=== PATIENT | female | born 1960 | race Caucasian/White ===

== ENCOUNTER 2016-08-14 16:33 | Inpatient (IN) | payer OTHER ==
[2016-08-14] VITALS (7 sets, daily range): BP systolic 97–121; BP diastolic 65–71
[~2016-08-14] VITALS: Ht 154.9 cm; Wt 195.0 kg
[~2016-08-14 16:33] MED LIST: AZIT-21 PO; PRCD5U PO
[2016-08-14] MEDS ORDERED: RT-ALBUINH IH (16:47)
[2016-08-14] MEDS ORDERED: SERT100T PO (16:47)
--- NOTE | 2016-08-14 17:22 | ED Respiratory ---
General Chief Complaint: Respiratory Problems Stated Complaint: SOB Nursing Triage Note: C/O SOA FOR QUITE SOME TIME. GENERALIZED PAIN. PT. ALSO C/O WEAKNESS FOR ABOUT 3 MONTHS Source: patient Exam Limitations: no limitations (JANAE LEWIS MD) History of Present Illness Time seen by provider: 17:21 Initial Comments The patient is a morbidly obese white female who presents complaining of shortness of breath. She states that she has been short of breath for as long as 2 years. This is been getting worse over the last 6 months. She also complains of generalized pain and progressive weakness over period of about 3 months. She believes that she is retaining fluid. She has no prior history of myocardial disease. She was a former smoker and quit about 10 years ago. She began smoking 12 which would put bau-bygx-hvdy at 40 or more. (JANAE LEWIS MD) Initial Comments Patient and her daughter reports that she has been diagnosed with hepatitis C recently was told she get worked up by Dr. Maciel and is been in the process of getting this started but it has not had an ultrasound of the liver or kidney workup on genotype that she is aware of. Her daughter says that yesterday she noticed that her whites of her eyes were extremely yellow and her skin was very yellow however to little better today. The patient's also noticed the last several days is progressively gotten worse that she's had swelling in her feet difficulty breathing and feeling extremely fatigued and having anergia. Patient reports she drinks alcohol approximately 1/5 of vodka daily. (RAMONA FELIPE) Allergies and Home Medications Allergies Coded Allergies: No Known Drug Allergies (Unverified , 08/14/16) Home Medications Albuterol Sulfate 6.7 Gm Hfa.aer.ad, 2 PUFF IH Q6H PRN for SHORTNESS OF BREATH, (Reported) Sertraline HCl 100 Mg Tablet, 100 MG PO DAILY, (Reported) Constitutional: No chills, No diaphoresis, No fever, malaise, weight gain Respiratory: No cough, No short of breath, No wheezing Cardiovascular: No chest pain, edema, No palpitations Gastrointestinal: No abdominal pain, No constipation, diarrhea, No nausea, No vomiting Genitourinary: No discharge, No dysuria Musculoskeletal: No back pain, No joint pain Skin: change in color (yellow with scleral icterus), No pruritus, No rash ( RAMONA FELIPE) Past Eleiivm-Mduiys-Qobyyp Hx Patient Social History Alcohol Use: Regular Use Recreational Drug Use: No Smoking Status: Former Smoker Recent Foreign Travel: No Contact w/Someone Who Travel: No Recent Infectious Disease Expo: No Recent Hopitalizations: No (JANAE LEWIS MD) Alcohol Use: Denies Use Recreational Drug Use: No Smoking Status: Former Smoker (RAMONA FELIPE) Seasonal Allergies Seasonal Allergies: No (JANAE LEWIS MD) Cardiovascular Cardiac Disorders: Hypertension (JANAE LEWIS MD) Musculoskeletal Musculoskeletal Disorders: Arthritis (JANAE LEWIS MD) Cancer Cancer: Cervical (JANAE LEWIS MD) Psychosocial Behavioral Health Disorders: Anxiety, Depression (JANAE LEWIS MD) Blood Transfusions Adverse Reaction to a Blood Tr: No (JANAE LEWIS MD) Physical Exam Vital Signs Vital Sign - Last 12Hours 08/14/16 16:35 Temp 99.0 Pulse 115 Resp 22 B/P (MAP) 139/71 Pulse Ox 97 O2 Delivery Room Air (RAMONA FELIPE) Vital Signs Capillary Refill : Less Than 3 Seconds (JANAE LEWIS MD) General Appearance: mild distress, obese Eyes: Bilateral Eye EOMI, Bilateral Eye PERRL, Bilateral Eye Scleral Icterus HEENT: normal ENT inspection, pharynx normal, scleral icterus (R), scleral icterus (L) Neck: non-tender, supple, normal inspection Respiratory: chest non-tender, lungs clear, normal breath sounds, no respiratory distress Cardiovascular: normal peripheral pulses, regular rate, rhythm, no JVD, other ( 2+ pitting edema to bilateral lower shortness) Gastrointestinal: normal bowel sounds, non tender, soft Neurologic/Psychiatric: 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, alert, oriented x 3, other ( essential tremor without asterixis) Skin: normal color, warm/dry Lymphatic: no adenopathy (RAMONA FELIPE) Progress/Results/Core Measures Results/Orders Lab Results Laboratory Tests Test 08/14/16 17:40 08/14/16 17:45 08/14/16 19:10 Range/Units White Blood Count 11.9 H 4.3-11.0 10^3/uL Red Blood Count 3.13 L 4.35-5.85 10^6/uL Hemoglobin 10.5 L 11.5-16.0 G/DL Hematocrit 32 L 35-52 % Mean Corpuscular Volume 102 H 80-99 FL Mean Corpuscular Hemoglobin 34 25-34 PG Mean Corpuscular Hemoglobin Concent 33 32-36 G/DL Red Cell Distribution Width 20.2 H 10.0-14.5 % Platelet Count 101 L 130-400 10^3/uL Mean Platelet Volume 9.9 7.4-10.4 FL Neutrophils (%) (Auto) 73 42-75 % Lymphocytes (%) (Auto) 14 12-44 % Monocytes (%) (Auto) 11 0-12 % Eosinophils (%) (Auto) 1 0-10 % Basophils (%) (Auto) 1 0-10 % Neutrophils # (Auto) 8.7 H 1.8-7.8 X 10^3 Lymphocytes # (Auto) 1.7 1.0-4.0 X 10^3 Monocytes # (Auto) 1.3 H 0.0-1.0 X 10^3 Eosinophils # (Auto) 0.1 0.0-0.3 10^3/uL Basophils # (Auto) 0.1 0.0-0.1 10^3/uL Sodium Level 128 L 135-145 MMOL/L Potassium Level 6.0 H 3.9 3.6-5.0 MMOL/L Chloride Level 91 L 98-107 MMOL/L Carbon Dioxide Level 22 21-32 MMOL/L Anion Gap 15 H 5-14 MMOL/L Blood Urea Nitrogen 6 L 7-18 MG/DL Creatinine 0.48 L 0.60-1.30 MG/DL Estimat Glomerular Filtration Rate > 60 BUN/Creatinine Ratio 13 Glucose Level 130 H 70-105 MG/DL Calcium Level 7.8 L 8.5-10.1 MG/DL Total Bilirubin 10.6 H 0.1-1.0 MG/DL Aspartate Amino Transf (AST/SGOT) 227 H 5-34 U/L Alanine Aminotransferase (ALT/SGPT) 82 H 0-55 U/L Alkaline Phosphatase 443 H 40-136 U/L Troponin I < 0.30 <0.30 NG/ML Total Protein 6.4 6.4-8.2 GM/DL Albumin 2.7 L 3.2-4.5 GM/DL Blood Gas Puncture Site LEFT RADIAL/VENOUS Blood Gas Patient Temperature 97.9 Arterial Blood pH 7.44 H 7.37-7.43 Arterial Blood Partial Pressure CO2 38 35-45 MMHG Arterial Blood Partial Pressure O2 21 *L 79-93 MMHG Arterial Blood HCO3 26 23-27 MMOL/L Arterial Blood Total CO2 27.1 21.0-31.0 MMOL/L Arterial Blood Oxygen Saturation 28 L 94-100 % Arterial Blood Base Excess 2.1 -2.5-2.5 MMOL/L Shaan Test POSITIVE Blood Gas Ventilator Setting NO Blood Gas Inspired Oxygen ROOM AIR Prothrombin Time 15.6 H 12.2-14.7 SEC INR Comment 1.3 0.8-1.4 Activated Partial Thromboplast Time 47 H 24-35 SEC Ammonia 57 H 11-32 UMOL/L (RAMONA FELIPE) My Orders Orders - RAMONA FELIPE Ammonia (08/14/16 18:43) Protime With Inr (08/14/16 18:43) Partial Thromboplastin Time (08/14/16 18:43) Potassium (08/14/16 18:51) Ondansetron Injection (Zofran Injectio (08/14/16 19:45) (RAMONA FELIPE) Medications Given in ED Current Medications Medications Dose Ordered Sig/Serenity Route Start Time Stop Time Status Last Admin Dose Admin Ondansetron HCl 4 mg ONCE ONCE IVP 08/14/16 19:45 08/14/16 19:46 DC 08/14/16 19:35 4 MG (RAMONA FELIPE) Vital Signs/I&O Vital Sign - Last 12Hours 08/14/16 16:35 Temp 99.0 Pulse 115 Resp 22 B/P (MAP) 139/71 Pulse Ox 97 O2 Delivery Room Air (RAMONA FELIPE) Blood Pressure Mean: 93 Progress Note #1: Time: 18:48 Progress Note Patient is very jaundiced and has history that presents as end-stage liver failure with hypoalbuminemia and fluid overload. Her electrolytes are very off we will address her potassium with diuretics and possibly laxative if the ammonia is high. I will obtain ammonia and PT/INR and PTT. She is hyponatremic she will need inpatient status to get some of these electrolyte stabilizing get some of this fluid off.. Progress Note #2: Time: 20:34 Progress Note Repeat potassium was normal indicating the initial spurious or hemolyzed specimen. Her ammonia is elevated and she has increased somnolence as of lately so we'll call this mild hepatic encephalopathy and discuss it with Dr. Maciel and place her in observation status secondary to her debility and inability to take her meds care for herself if she has loose stools and diuretics same time. This also gives a chance to cement some plans since she has had a hard time getting in with her primary care physician for the management of her alcoholic/ viral hepatitis and probable cirrhosis. (RAMONA FELIPE) Diagnostic Imaging Diagonstic Imaging: Xray Plain Films/CT/US/NM/MRI: chest Comments VIA [facility]. [place], [place] NAME: KAROLINE MORAES MED REC#: [id number] PT STATUS: REG ER : 1960 PHYSICIAN: JANAE LEWIS MD ADMIT DATE: 08/14/16/ER Draft Date of Exam:08/14/16 CHEST 1 VIEW, AP/PA ONLY Portable erect AP chest at 5:44 p.m. INDICATION: Shortness of breath. FINDINGS: There is shallow inspiration when compared to the prior exam of 02/11/09. Allowing for this technical factor, the heart size is stable when compared to the prior exam and not enlarged. There is no sign of failure, pneumonia or pleural effusion. The mediastinum is not widened. The osseous structures are intact. IMPRESSION: Allowing for the shallow degree of inspiration, there is no evidence for an acute cardiopulmonary abnormality. Dictated on workstation # [id number] Dict: 08/14/16 1758 Trans: 08/14/16 1802 [facility] [id number] Interpreted by: MAITE MERRITT MD Electronically signed by: Reviewed: Reviewed by Me (RAMONA FELIPE) Transfer of Care Transfer of Care Time: 18:16 Care transferred to: randi (RAMONA FELIPE) Departure Communication Time/Spoke to Admitting Phy: 20:25 Communication Raheem: Discussed the case and she feels that an observation status just because of her physical debility would be reasonable and we will get started with Lasix and lactulose tonight. (RAMONA FELIPE) Impression Impression: Primary Impression: Hyperbilirubinemia Additional Impressions: Hypoalbuminemia Fluid overload Qualified Codes: E87.79 - Other fluid overload Hepatitis C Qualified Codes: B18.2 - Chronic viral hepatitis C Debility Hyperammonemia Acute on chronic alcoholic liver disease Hepatic encephalopathy Disposition: ADMITTED INPATIENT (obs) Condition: Stable Decision to Admit Reason: Admit from ER (General) Decision to Admit/Date: Aug 14, 2016 Time/Decision to Admit Time: 20:30 (RAMONA FELIPE) Departure-Patient Inst. Referrals: ALVIN NOBLES DO (PCP/Family) Primary Care Physician Copy Copies To 1: ARABELLA PAULSON RODNEY K MD Aug 14, 2016 17:22 RAMONA FELIPE Aug 14, 2016 18:17
[2016-08-14 17:46] LABS: BASOPHILS # (AUTO) 0.1 10^3/uL (0.0-0.1); BASOPHILS % (AUTO) 1 % (0-10); EOSINOPHILS # (AUTO) 0.1 10^3/uL (0.0-0.3); EOSINOPHILS % (AUTO) 1 % (0-10); LYMPHOCYTES # (AUTO) 1.7 X 10^3 (1.0-4.0); LYMPHOCYTES % (AUTO) 14 % (12-44); MEAN CORPUSCULAR HEMOGLOBIN 34 PG (25-34); MEAN CORPUSCULAR HGB CONC 33 G/DL (32-36); MEAN CORPUSCULAR VOLUME 102 FL (80-99); MEAN PLATELET VOLUME 9.9 FL (7.4-10.4); MONOCYTES # (AUTO) 1.3 X 10^3 (0.0-1.0); MONOCYTES % (AUTO) 11 % (0-12); NEUTROPHILS # (AUTO) 8.7 X 10^3 (1.8-7.8); NEUTROPHILS % (AUTO) 73 % (42-75); PLATELET COUNT 101 10^3/uL (130-400); RED BLOOD COUNT 3.13 10^6/uL (4.35-5.85); RED CELL DISTRIBUTION WIDTH 20.2 % (10.0-14.5); WHITE BLOOD COUNT 11.9 10^3/uL (4.3-11.0)
[2016-08-14 17:57] LABS: ABG BASE EXCESS 2.1 MMOL/L (-2.5-2.5); ABG HCO3 26 MMOL/L (23-27); ABG OXYGEN SATURATION 28 % (94-100); ABG PCO2 38 MMHG (35-45); ABG PH 7.44 (7.37-7.43); ABG TCO2 27.1 MMOL/L (21.0-31.0)
[2016-08-14 17:58] LABS: ABG PO2 21 MMHG (79-93)
[2016-08-14 17:59] LABS: ALLENS TEST POSITIVE; PATIENT TEMP 97.9
--- NOTE | 2016-08-14 18:02 | Diagnostic Imaging Report ---
Portable erect AP chest at 5:44 p.m. INDICATION: Shortness of breath. FINDINGS: There is shallow inspiration when compared to the prior exam of 02/11/09. Allowing for this technical factor, the heart size is stable when compared to the prior exam and not enlarged. There is no sign of failure, pneumonia or pleural effusion. The mediastinum is not widened. The osseous structures are intact. IMPRESSION: Allowing for the shallow degree of inspiration, there is no evidence for an acute cardiopulmonary abnormality. Dictated by: Dictated on workstation # [id number]
[2016-08-14 18:06] LABS: ALANINE AMINOTRANSFERASE 82 U/L (0-55); ALBUMIN 2.7 GM/DL (3.2-4.5); ANION GAP 15 MMOL/L (5-14); ASPARTATE AMINO TRANSFERASE 227 U/L (5-34); BILIRUBIN,TOTAL 10.6 MG/DL (0.1-1.0); BLOOD UREA NITROGEN 6 MG/DL (7-18); BUN/CREATININE RATIO 13; CALCIUM 7.8 MG/DL (8.5-10.1); CARBON DIOXIDE 22 MMOL/L (21-32); CHLORIDE 91 MMOL/L (98-107); CREATININE SERUM 0.48 MG/DL (0.60-1.30); GFR ESTIMATED > 60; GLUCOSE 130 MG/DL (70-105); SODIUM 128 MMOL/L (135-145); TOTAL PROTEIN 6.4 GM/DL (6.4-8.2)
[2016-08-14 18:12] LABS: TROPONIN I < 0.30 NG/ML (<0.30)
[2016-08-14 19:27] LABS: POTASSIUM 3.9 MMOL/L (3.6-5.0)
[2016-08-14 19:36] LABS: INR 1.3 (0.8-1.4); PROTHROMBIN TIME PATIENT 15.6 SEC (12.2-14.7)
[2016-08-14] MEDS ORDERED: ONDANSETRON 4 MG/2 ML (SDV) Z0FRAN IVP ONE (19:45)
[2016-08-14] MEDS ORDERED: ONDANSETRON 4 MG/2 ML (SDV) Z0FRAN IV PRN (22:00)
[2016-08-14] MEDS ORDERED: LACTULOSE SYRUP 10GM/15ML (ENULOSE) 30ML UDC PO ONE (22:00)
[2016-08-14] MEDS ORDERED: SENNA W/DOCUSATE (SENOKOT S) TABLET PO PRN (22:00)
[2016-08-14] MEDS ORDERED: LORazepam 1 MG (ATIVAN) TAB PO PRN ×3 (22:00→22:15)
[2016-08-14] MEDS ORDERED: LORazepam INJ 2 MG/ML (ATIVAN) VIAL IV PRN ×4 (22:00)
[2016-08-14] MEDS ORDERED: ANTACID SUSP 30 ML UDC (MYLANTA) PO PRN (22:00)
[2016-08-15] VITALS (12 sets, daily range): BP systolic 100–128; BP diastolic 51–77
[2016-08-15 04:53] LABS: BASOPHILS # (AUTO) 0.1 10^3/uL (0.0-0.1); BASOPHILS % (AUTO) 1 % (0-10); EOSINOPHILS # (AUTO) 0.1 10^3/uL (0.0-0.3); EOSINOPHILS % (AUTO) 0 % (0-10); LYMPHOCYTES # (AUTO) 2.5 X 10^3 (1.0-4.0); LYMPHOCYTES % (AUTO) 22 % (12-44); MEAN CORPUSCULAR HEMOGLOBIN 33 PG (25-34); MEAN CORPUSCULAR HGB CONC 32 G/DL (32-36); MEAN CORPUSCULAR VOLUME 104 FL (80-99); MEAN PLATELET VOLUME 10.2 FL (7.4-10.4); MONOCYTES # (AUTO) 1.5 X 10^3 (0.0-1.0); MONOCYTES % (AUTO) 13 % (0-12); NEUTROPHILS # (AUTO) 7.5 X 10^3 (1.8-7.8); NEUTROPHILS % (AUTO) 65 % (42-75); PLATELET COUNT 175 10^3/uL (130-400); RED CELL DISTRIBUTION WIDTH 19.8 % (10.0-14.5); WHITE BLOOD COUNT 11.7 10^3/uL (4.3-11.0)
[2016-08-15 05:21] LABS: ALANINE AMINOTRANSFERASE 68 U/L (0-55); ALBUMIN 2.4 GM/DL (3.2-4.5); AMMONIA 74 UMOL/L (11-32); ANION GAP 14 MMOL/L (5-14); ASPARTATE AMINO TRANSFERASE 198 U/L (5-34); BLOOD UREA NITROGEN 7 MG/DL (7-18); BUN/CREATININE RATIO 12; CALCIUM 7.6 MG/DL (8.5-10.1); CARBON DIOXIDE 24 MMOL/L (21-32); CHLORIDE 92 MMOL/L (98-107); CREATININE SERUM 0.58 MG/DL (0.60-1.30); GFR ESTIMATED > 60; GLUCOSE 105 MG/DL (70-105); POTASSIUM 3.8 MMOL/L (3.6-5.0); SODIUM 130 MMOL/L (135-145); TOTAL PROTEIN 5.2 GM/DL (6.4-8.2)
[2016-08-15] MEDS: MULTIVIT W/MINERALS TAB (THERAGRAN M) PO SCH (06:42)
[2016-08-15] MEDS: THIAMINE 100 MG (VITAMIN B-1) TAB PO SCH (06:42)
[2016-08-15 08:09] LABS: BILIRUBIN,URINE 3+ (NEGATIVE); KETONES,URINE NEGATIVE (NEGATIVE); LEUKOCYTE ESTERASE ,URINE 2+ (NEGATIVE); NITRITE,URINE POSITIVE (NEGATIVE); PH,URINE 6.5 (5-9); PROTEIN,URINE 1+ (NEGATIVE); UROBILINOGEN,URINE 8 MG/DL (NORMAL)
[2016-08-15] MEDS: FOLIC ACID 1 MG TAB PO SCH (08:30)
[2016-08-15] MEDS: MAGNESIUM OXIDE (MAG-OX)400 MG TAB PO SCH ×2 (08:30→20:27)
[2016-08-15] MEDS: CEFDINIR 300 MG (OMNICEF) CAP PO SCH ×2 (10:06→20:27)
[2016-08-15 10:53] LABS: INR 1.4 (0.8-1.4); PROTHROMBIN TIME PATIENT 16.8 SEC (12.2-14.7)
[2016-08-15] MEDS: LACTULOSE SYRUP 10GM/15ML (ENULOSE) 30ML UDC PO SCH ×2 (12:12→20:27)
[2016-08-15] MEDS: FUROSEMIDE 40 MG (LASIX) TAB PO SCH ×2 (12:12→16:30)
[2016-08-15] MEDS: IBUPROFEN 600 MG (MOTRIN) TAB PO PRN ×2 (13:51→22:54)
--- NOTE | 2016-08-15 14:40 | History & Physicial (CHS) ---
HPI History of Present Illness: 56 yo female presented to ER after a few days of acute worsening of chronic weakness and fatigue. Over the last few days, she has been essentially so weak that she is unable to get to the bathroom without assistance. Per her daughter, she has been very drowsy and in and out of sleep all the time, more forgetful than usual. She has had very little intake but in spite of that, has had no urinary output in a day or longer. She was noted to have slightly elevated liver enzymes in May outpatient and had a hepatitis panel checked which showed positive antibody to Hepatitis C. An ultrasound was ordered, but she did not have it done and has not yet had Hep C pcr testing. She has continued to drink a significant amount of alcohol. She states she wants to quit, but was worried about having seizures at home where she lives alone. Date seen by provider: Aug 15, 2016 Time Seen by Provider: 11:00 Attending Physician Kayleen Maciel MD PCP Kayleen Maciel MD Consult Date of Admission Aug 14, 2016 at 8:47 pm Home Medications Home Medications Reviewed patient Home Medication Reconciliation Form Allergies Coded Allergies: No Known Drug Allergies (Unverified , 08/14/16) SNS-Xglkwp-Oxlalk Hx Patient Social History Alcohol Use: Regular Use Recreational Drug Use: No Smoking Status: Former Smoker Recent Foreign Travel: No Contact w/other who traveled: No Recent Hopitalizations: No Recent Infectious Disease Expo: No Physical Abuse Screen: No Sexual Abuse: No Past Medical History PMHx: Hepatitis C (unknown if active or historic) Excessive alcohol use Depression Panic attacks PSurgHx: C section Family Medical History Significant Family History: Cancer (lung), Diabetes Review of Systems (CHC) Constitutional: No fever, malaise, weakness EENTM: no symptoms reported Respiratory: short of breath Cardiovascular: edema Gastrointestinal: No abdominal pain, No constipation, diarrhea, nausea, vomiting Genitourinary: decreased output Musculoskeletal: joint pain (chronic, no recent changes), muscle pain (leg cramps) Skin: No rash Psychiatric/Neurological: Anxiety Reviewed Test Results Reviewed Test Results Lab Laboratory Tests Test 08/14/16 17:40 08/14/16 17:45 08/14/16 19:10 08/15/16 04:27 Range/Units White Blood Count 11.9 H 11.7 H 4.3-11.0 10^3/uL Red Blood Count 3.13 L 2.80 L 4.35-5.85 10^6/uL Hemoglobin 10.5 L 9.2 L 11.5-16.0 G/DL Hematocrit 32 L 29 L 35-52 % Mean Corpuscular Volume 102 H 104 H 80-99 FL Mean Corpuscular Hemoglobin 34 33 25-34 PG Mean Corpuscular Hemoglobin Concent 33 32 32-36 G/DL Red Cell Distribution Width 20.2 H 19.8 H 10.0-14.5 % Platelet Count 101 L 175 130-400 10^3/uL Mean Platelet Volume 9.9 10.2 7.4-10.4 FL Neutrophils (%) (Auto) 73 65 42-75 % Lymphocytes (%) (Auto) 14 22 12-44 % Monocytes (%) (Auto) 11 13 H 0-12 % Eosinophils (%) (Auto) 1 0 0-10 % Basophils (%) (Auto) 1 1 0-10 % Neutrophils # (Auto) 8.7 H 7.5 1.8-7.8 X 10^3 Lymphocytes # (Auto) 1.7 2.5 1.0-4.0 X 10^3 Monocytes # (Auto) 1.3 H 1.5 H 0.0-1.0 X 10^3 Eosinophils # (Auto) 0.1 0.1 0.0-0.3 10^3/uL Basophils # (Auto) 0.1 0.1 0.0-0.1 10^3/uL Sodium Level 128 L 130 L 135-145 MMOL/L Potassium Level 6.0 H 3.9 3.8 3.6-5.0 MMOL/L Chloride Level 91 L 92 L 98-107 MMOL/L Carbon Dioxide Level 22 24 21-32 MMOL/L Anion Gap 15 H 14 5-14 MMOL/L Blood Urea Nitrogen 6 L 7 7-18 MG/DL Creatinine 0.48 L 0.58 L 0.60-1.30 MG/DL Estimat Glomerular Filtration Rate > 60 > 60 BUN/Creatinine Ratio 13 12 Glucose Level 130 H 105 70-105 MG/DL Calcium Level 7.8 L 7.6 L 8.5-10.1 MG/DL Total Bilirubin 10.6 H 10.0 H 0.1-1.0 MG/DL Aspartate Amino Transf (AST/SGOT) 227 H 198 H 5-34 U/L Alanine Aminotransferase (ALT/SGPT) 82 H 68 H 0-55 U/L Alkaline Phosphatase 443 H 403 H 40-136 U/L Troponin I < 0.30 <0.30 NG/ML Total Protein 6.4 5.2 L 6.4-8.2 GM/DL Albumin 2.7 L 2.4 L 3.2-4.5 GM/DL Blood Gas Puncture Site LEFT RADIAL/VENOUS Blood Gas Patient Temperature 97.9 Arterial Blood pH 7.44 H 7.37-7.43 Arterial Blood Partial Pressure CO2 38 35-45 MMHG Arterial Blood Partial Pressure O2 21 *L 79-93 MMHG Arterial Blood HCO3 26 23-27 MMOL/L Arterial Blood Total CO2 27.1 21.0-31.0 MMOL/L Arterial Blood Oxygen Saturation 28 L 94-100 % Arterial Blood Base Excess 2.1 -2.5-2.5 MMOL/L Shaan Test POSITIVE Blood Gas Ventilator Setting NO Blood Gas Inspired Oxygen ROOM AIR Prothrombin Time 15.6 H 12.2-14.7 SEC INR Comment 1.3 0.8-1.4 Activated Partial Thromboplast Time 47 H 24-35 SEC Ammonia 57 H 74 H 11-32 UMOL/L Serum Alcohol < 10 <10 MG/DL Test 08/15/16 07:45 08/15/16 10:35 Range/Units Urine Color BROWN H Urine Clarity CLEAR Urine pH 6.5 5-9 Urine Specific [place] 1.010 L 1.016-1.022 Urine Protein 1+ H NEGATIVE Urine Glucose (UA) NEGATIVE NEGATIVE Urine Ketones NEGATIVE NEGATIVE Urine Nitrite POSITIVE H NEGATIVE Urine Bilirubin 3+ H NEGATIVE Urine Urobilinogen 8 H NORMAL MG/DL Urine Leukocyte Esterase 2+ H NEGATIVE Urine RBC (Auto) 3+ H NEGATIVE Urine RBC NONE /HPF Urine WBC 10-25 H /HPF Urine Squamous Epithelial Cells 5-10 /HPF Urine Crystals NONE /LPF Urine Bacteria FEW H /HPF Urine Casts NONE /LPF Urine Mucus NEGATIVE /LPF Urine Culture Indicated YES Prothrombin Time 16.8 H 12.2-14.7 SEC INR Comment 1.4 0.8-1.4 Radiology CXR 08/14: DRAFT IMPRESSION: Allowing for the shallow degree of inspiration, there is no evidence for an acute cardiopulmonary abnormality. Physical Exam-(CHC) Physical Exam Vital Signs VS - Last 72 Hours, by Label 08/14/16 08/14/16 08/14/16 08/14/16 16:35 21:16 21:30 21:30 Temp 99.0 97.7 98.5 Pulse 115 107 83 Resp 22 24 B/P (MAP) 139/71 101/71 Pulse Ox 97 95 98 O2 Delivery Room Air Room Air Room Air Room Air 08/14/16 08/14/16 08/14/16 08/14/16 21:51 22:07 22:52 23:21 Temp 98.4 98.4 98.0 Pulse 107 106 108 106 B/P (MAP) 101/71 118/66 121/71 105/71 Pulse Ox 99 O2 Delivery Room Air Room Air Room Air Room Air 08/14/16 08/14/16 08/14/16 08/15/16 23:39 23:50 23:57 00:06 Temp 99.0 Pulse 112 111 105 B/P (MAP) 97/65 107/71 100/70 Pulse Ox 95 O2 Delivery Room Air Room Air 08/15/16 08/15/16 08/15/16 08/15/16 00:22 00:37 00:51 01:00 Pulse 104 105 108 103 B/P (MAP) 100/55 105/56 113/74 08/15/16 08/15/16 08/15/16 08/15/16 01:06 01:43 02:09 04:00 Temp 97.9 98.4 98.5 98.2 Pulse 109 102 97 96 Resp B/P (MAP) 109/71 121/77 116/74 119/72 Pulse Ox 94 91 95 94 O2 Delivery Room Air Nasal Cannula Nasal Cannula Nasal Cannula O2 Flow Rate 2.00 2.00 2.00 08/15/16 08/15/16 08/15/16 08/15/16 06:57 07:45 08:00 08:00 Temp 98.8 Pulse 97 100 Resp 24 B/P (MAP) 114/59 Pulse Ox 98 98 O2 Delivery Nasal Cannula Nasal Cannula Room Air O2 Flow Rate 1.50 2.00 08/15/16 08/15/16 12:00 14:15 Temp 98.5 Pulse 103 Resp 24 B/P (MAP) 128/58 Pulse Ox 96 96 O2 Delivery Nasal Cannula O2 Flow Rate 2.00 Capillary Refill : Less Than 3 SecondsLess Than 3 Seconds General Appearance: mild distress, obese Eyes: Bilateral Eye Scleral Icterus Respiratory: lungs clear, accessory muscle use Cardiovascular: regular rate, rhythm, no murmur Gastrointestinal: normal bowel sounds, soft, No distended, other (mild ttp diffusely without rebound or guarding) Extremities: pedal edema (2+ to knees) Neurologic/Psychiatric: alert, normal mood/affect Skin: diaphoresis, jaundice Assessment/Plan Assessment/Plan Admission Dx Suspect hepatic encephalopathy Suspect chronic hepatitis C Transaminitis/hyperbilirubinemia UTI Hyponatremia Leukocytosis Macrocytic anemia Thrombocytopenia Excessive alcohol use Plan Suspect hepatic encephalopathy- excessive sleepiness and weakness with elevated ammonia on admission and history of elevated LFTs and Hep C antibody positive -Will obtain ultrasound liver and portal/splenic doppler to eval for possible portal/splenic vein thrombosis leading to acute on chronic liver dysfunction/ encephalopathy as well as to evaluate for ascites or liver mass- if ascites present, will consult Surgery for paracentesis to check for SBP -Check AFP and liver US as noted above to eval for hepatocellular carcinoma -Lactulose 30 mg TID -PT consult due to debility, unable to get up stairs to her home Suspect chronic hepatitis C- positive antibody May 2016, will check PCR to see if active Transaminitis/hyperbilirubinemia- significantly worsened in last few months, check Hep C and imaging as above, may be due to alcoholic liver disease UTI- may be partial cause of acute worsening condition, treat with cefdinir, await culture Hyponatremia- likely due to fluid overload from liver disease with low albumin, but may also have component of true hypovolemia given report of poor intake recently -Furosemide 40 mg PO BID, monitor GFR and intake closely Leukocytosis- unclear if related to UTI versus acute on chronic liver failure Macrocytic anemia- likely result of chronic alcohol use and liver disease, check B12 and folate Thrombocytopenia- likely due to liver disease, normalized day after admission, monitor Excessive alcohol use- alcohol withdrawal protocol ordered if needed, has not required any lorazepam as of yet -Social service consult to assist with outpatient treatment options, she states she will be able to quite if she knows she is past the withdrawal stage safely Diagnosis/Problems: Clinical Quality Measures DVT/VTE Risk/Contraindication: Risk Factor Score Per Nursin RFS Level Per Nursing on Admit: 4+=Very High Copy Copies To 1: KAYLEEN MACIEL MD, BETHANY N MD Aug 15, 2016 2:40 pm
[2016-08-15] MEDS ORDERED: RT-ALBUTEROL SULF 2.5 MG/3 ML PRE-MIX VIAL IH PRN (15:15)
--- NOTE | 2016-08-15 18:28 | Diagnostic Imaging Report ---
INDICATION: Hepatic encephalopathy. Evaluate for portal or splenic vein thrombosis. COMPARISON: None FINDINGS: Hepatic parenchyma is diffusely hyperechoic. This does result in posterior acoustic shadowing. No focal hepatic masses are seen. Liver is also enlarged measuring 22 cm in length. External margins of the liver are smooth without appreciable macro nodularity. The vascular structures and intrahepatic biliary ducts of the liver are heavily obscured, but visualized portions of the portal vein do show hepatopetal flow. Common bile duct is also heavily obscured and not visualized. Visualized portion of the gallbladder show no evidence of cholelithiasis, gallbladder wall thickening, nor pericholecystic free fluid. Abdominal aorta, IVC, and pancreas are obscured as well. Spleen measures 11.7 x 6.9 x 6 cm in size. No focal splenic mass type lesions are identified. Splenic vein is very difficult to visualize. Right kidney measures 10.7 cm in length and the left measures 11.9 cm. Kidneys are also heavily obscured, but show no evidence of solid mass, calculus, nor hydronephrosis. There is no ascites. IMPRESSION: 1. Overall, abdominal sonogram is heavily obscured secondary to patient body habitus and poor acoustic windows. 2. Hepatomegaly with hepatic steatosis. Hepatic steatosis also heavily obscured as underlying hepatic parenchymal. 3. Portal vein is obscured, but does appear to show hepatopetal flow. 4. Splenic vein suboptimally visualized. Dictated by: Dictated on workstation # [id number]
[2016-08-15] MEDS: ZOLPIDEM 5 MG (AMBIEN) TAB PO PRN (22:54)
[2016-08-15] MEDS: ENOXAPARIN 40 MG/0.4 ML (LOVENOX) SYR SC SCH (22:58)
[2016-08-16] VITALS (7 sets, daily range): BP systolic 108–127; BP diastolic 50–78
[2016-08-16 04:48] LABS: RED BLOOD COUNT 2.78 10^6/uL (4.35-5.85); WHITE BLOOD COUNT 11.8 10^3/uL (4.3-11.0)
[2016-08-16 05:15] LABS: INR 1.5 (0.8-1.4)
[2016-08-16 05:32] LABS: ALANINE AMINOTRANSFERASE 71 U/L (0-55); ALBUMIN 2.4 GM/DL (3.2-4.5); ANION GAP 12 MMOL/L (5-14); ASPARTATE AMINO TRANSFERASE 231 U/L (5-34); BILIRUBIN,TOTAL 11.8 MG/DL (0.1-1.0); BLOOD UREA NITROGEN 11 MG/DL (7-18); BUN/CREATININE RATIO 14; CALCIUM 7.6 MG/DL (8.5-10.1); CARBON DIOXIDE 26 MMOL/L (21-32); CHLORIDE 93 MMOL/L (98-107); CREATININE SERUM 0.81 MG/DL (0.60-1.30); GFR ESTIMATED > 60; GLUCOSE 105 MG/DL (70-105); MAGNESIUM 1.2 MG/DL (1.8-2.4); POTASSIUM 3.4 MMOL/L (3.6-5.0); SODIUM 131 MMOL/L (135-145); TOTAL PROTEIN 5.5 GM/DL (6.4-8.2)
[2016-08-16] MEDS: MULTIVIT W/MINERALS TAB (THERAGRAN M) PO SCH (06:13)
[2016-08-16] MEDS: FUROSEMIDE 40 MG (LASIX) TAB PO SCH ×2 (06:13→16:49)
[2016-08-16] MEDS: THIAMINE 100 MG (VITAMIN B-1) TAB PO SCH (06:13)
[2016-08-16] MEDS: MAGNESIUM OXIDE (MAG-OX)400 MG TAB PO SCH ×2 (08:49→21:41)
[2016-08-16] MEDS: FOLIC ACID 1 MG TAB PO SCH (08:49)
[2016-08-16] MEDS: LACTULOSE SYRUP 10GM/15ML (ENULOSE) 30ML UDC PO SCH ×3 (08:49→20:23)
[2016-08-16] MEDS: CEFDINIR 300 MG (OMNICEF) CAP PO SCH ×2 (08:49→21:41)
[2016-08-16] MEDS: IBUPROFEN 600 MG (MOTRIN) TAB PO PRN ×2 (08:53→16:49)
[2016-08-16] MEDS ORDERED: KCL 20 MEQ TAB (K-DUR) PO NR (09:15)
[2016-08-16] MEDS ORDERED: MAGNESIUM 1 GM/100 ML IVPB 100 ML IV ONE ×2 (09:15→18:45)
[2016-08-16] MEDS ORDERED: FUROSEMIDE 40 MG/4 ML INJ (LASIX) IVP NR (09:15)
--- NOTE | 2016-08-16 11:23 | Progress Note (SOAP) ---
NURASTEWART Rose STUDENT 08/16/16 1123: Subjective Subjective/Events-last exam 56 y/o F with somnolence and weakness. Patient reported weakness was less than the previous days. Over the past 24-48 hours patient has had difficulty urinating and dysuria. Patient has had an increased appetite, especially craving salt. She has had difficulty ambulating due to pain and the extra fluid on her legs. She complains of feeling swollen and some SOB. Patient reported no abdominal pain, nausea, headache, or chest pain. She reported sleeping better last night following administration of Zolpidem. Loose stools throughout the morning due to Lactulose. Discussed severity of her condition and that quitting alcohol use would possibly help her condition. No alcohol withdrawl symptoms have been noted by the patient. Review of Systems Date Seen by Provider: Aug 16, 2016 Time Seen by Provider: 09:00 General: Fatigue, Malaise, Appetite (Craving salt) Pulmonary: Dyspnea (Fluid overloaded) Gastrointestinal: Diarrhea (On lactulose) Genitourinary: Dysuria Objective Exam Last Set of Vital Signs Vital Signs Date Time Temp Pulse Resp B/P (MAP) Pulse Ox O2 Delivery O2 Flow Rate FiO2 08/16/16 08:59 96.6 96 20 113/56 99 Room Air 08/16/16 06:56 2.00 Capillary Refill : Less Than 3 SecondsLess Than 3 Seconds I&O Intake and Output 08/16/16 00:00 Intake Total 2925 ml Output Total 252 ml Balance 2673 ml Intake Oral 2925 ml Output Urine Total 252 ml # Voids 4 # Bowel Movements 10 General: Alert, Oriented X3, Cooperative Lungs: Clear to Auscultation Heart: Regular Rate, Normal S1, Normal S2 Abdomen: Normal Bowel Sounds, No Tenderness, Other (Hepatomegally) Extremities: Other (Edema and tenderness) Skin: No Significant Lesion Neuro: Other (No asterixis) Psych/Mental Status: Mental Status NL, Mood NL Results/Procedures Lab Laboratory Tests 08/16/16 04:29: White Blood Count 11.8H, Red Blood Count 2.78L, Hemoglobin 9.2L, Hematocrit 29L , Mean Corpuscular Volume 104H, Mean Corpuscular Hemoglobin 33, Mean Corpuscular Hemoglobin Concent 32, Red Cell Distribution Width 20.0H, Platelet Count 188, Mean Platelet Volume 10.0, Prothrombin Time 18.0H, INR Comment 1.5H, Sodium Level 131L, Potassium Level 3.4L, Chloride Level 93L, Carbon Dioxide Level 26, Anion Gap 12, Blood Urea Nitrogen 11, Creatinine 0.81, Estimat Glomerular Filtration Rate > 60, BUN/Creatinine Ratio 14, Glucose Level 105, Calcium Level 7.6L, Magnesium Level 1.2L, Total Bilirubin 11.8H, Aspartate Amino Transf (AST/SGOT) 231H, Alanine Aminotransferase (ALT/SGPT) 71H, Alkaline Phosphatase 421H, Total Protein 5.5L, Albumin 2.4L Microbiology 08/15/16 Urine Culture - Preliminary, Resulted Escherichia Coli Strep Or Related Genus Radiology CXR 08/14: DRAFT IMPRESSION: Allowing for the shallow degree of inspiration, there is no evidence for an acute cardiopulmonary abnormality. 08/16: Abdominal US: Overall obscured imaging. Hepatomegally noted. No ascites identified. IMPRESSION: 1. Overall, abdominal sonogram is heavily obscured secondary to patient body habitus and poor acoustic windows. 2. Hepatomegaly with hepatic steatosis. Hepatic steatosis also heavily obscured as underlying hepatic parenchymal. 3. Portal vein is obscured, but does appear to show hepatopetal flow. 4. Splenic vein suboptimally visualized. Assessment/Plan Assessment/Plan Admission Dx 08/15-08/16 1. Suspect hepatic encephalopathy 2. Suspect chronic hepatitis C 3. Transaminitis/hyperbilirubinemia 4. UTI 5. Hyponatremia 6. Leukocytosis 7. Macrocytic anemia 8. Thrombocytopenia 9. Excessive alcohol use Plan 08/15-08/16 1. Suspect hepatic encephalopathy- excessive sleepiness and weakness with elevated ammonia on admission and history of elevated LFTs and Hep C antibody positive -Will obtain ultrasound liver and portal/splenic doppler to eval for possible portal/splenic vein thrombosis leading to acute on chronic liver dysfunction/ encephalopathy as well as to evaluate for ascites or liver mass- if ascites present, will consult Surgery for paracentesis to check for SBP -Check AFP and liver US as noted above to eval for hepatocellular carcinoma -Lactulose 30 mg TID -PT consult due to debility, unable to get up stairs to her home 08/16 AFP elevated at 421 continued rise in LFTs -US of liver identified hepatomegally, no ascites, all else was obscured due to tissue. -Continue lactulose at a lower dose. -Maddrey DF score of 39 (>32) suggests Prednisalone 40 mg but holding until determine if active Hepatitis infection before administering. Will not administer if active infection due to immunosuppressive properties. If patient' s condition worsens, may consult [facility] or transfer at the beginning of the week. 2. Suspect chronic hepatitis C- positive antibody May 2016, will check PCR to see if active 08/16 awaiting PCR results 3. Transaminitis/hyperbilirubinemia- significantly worsened in last few months, check Hep C and imaging as above, may be due to alcoholic liver disease 08/16 Bilirubin continues to increase to 11.8 in the past 24 hours - awaiting results on Hep C - Consult/transfer noted above 4. UTI- may be partial cause of acute worsening condition, treat with cefdinir, await culture 08/16 Preliminary urine culture identified E. coli and Strep sp. - Continue cedinir until drug sensitivities are identified 5. Hyponatremia- likely due to fluid overload from liver disease with low albumin, but may also have component of true hypovolemia given report of poor intake recently -Furosemide 40 mg PO BID, monitor GFR and intake closely 08/16 Furosemide 40 mg PO BID continued, IV furosemide given to release some fluid , as patient states that she has urinated very little. - Monitor GFR and intake 6. Leukocytosis- unclear if related to UTI versus acute on chronic liver failure 08/16 Treating urinary tract infection but may be due to acute on chromic liver failure 7. Macrocytic anemia- likely result of chronic alcohol use and liver disease, check B12 and folate 08/16 B12 and folate pending 8. Thrombocytopenia- likely due to liver disease, normalized day after admission , monitor 08/16 Resolved 9. Excessive alcohol use- alcohol withdrawal protocol ordered if needed, has not required any lorazepam as of yet -Social service consult to assist with outpatient treatment options, she states she will be able to quite if she knows she is past the withdrawal stage safely 08/16 No withdrawl symptoms - Patient confident she will be able to quit - Lorazepam ready if patient does have symptoms Diagnosis/Problems: Clinical Quality Measures DVT/VTE Risk/Contraindication: Risk Factor Score Per Nursin RFS Level Per Nursing on Admit: 4+=Very High KAYLEEN RAI MD 08/16/16 1406: Objective Exam General: No Acute Distress Extremities: Other (2+ pitting edema to mid-calf) Skin: Other (jaundiced) Neuro: Normal Speech, Other (No asterixis) Assessment/Plan Assessment/Plan Plan Stable but continues with critically abnormal liver tests including mild elevation in AST/ALT with disproportionate increase in bilirubin/alk phos suggestive of acute alcoholic hepatitis. Given worsening PT/INR, today her discrimination factor for alcoholic liver disease eval is above 32, discussed with Hepatology section forest fire warden at (Dr. Bundy) and studies on prednisolone for alcoholic hepatitis are not in presence of Hep C, and steroids could worsen Hep C, so recommend awaiting hep C PCR and continuing supportive care. Her mentation and mobility are improved today. They are willing to take patient in transfer should condition worsen, and if stable, Dr. Bundy would be willing to see her in clinic soon after discharge. MELD score is 20 suggesting significant risk of short term (3 month) mortality but would need to be abstinent from alcohol for 6 months typically prior to transplant consideration. Discussed this with patient and she states she is ready to make whatever changes are necessary, but is concerned due to her lack of insurance, will have high school social studies tutor see her tomorrow to try to connect her with resources to start process of looking into disability, etc. Diagnosis/Problems: Supervisory-Addendum Brief Supervisory Addendum Patient interviewed and examined by me in addition to MS3 Stewart Lyman, agree with documentation with my additions/changes. STEWART LYMAN STUDENT Aug 16, 2016 11:23 KAYLEEN RAI MD Aug 16, 2016 14:06
[2016-08-16] MEDS ORDERED: MENTHOL/ZINC OXIDE (CALMOSEPTINE) 113 GM TUBE TOP PRN (14:30)
[2016-08-16] MEDS ORDERED: GABAPENTIN 300 MG (NEURONTIN) CAP PO ONE (17:00)
[2016-08-16 18:15] LABS: CALCIUM 7.4 MG/DL (8.5-10.1); CREATININE SERUM 1.06 MG/DL (0.60-1.30); MAGNESIUM 1.3 MG/DL (1.8-2.4); POTASSIUM 3.7 MMOL/L (3.6-5.0)
[2016-08-16] MEDS ORDERED: KCL 20 MEQ TAB (K-DUR) PO ONE (18:45)
[2016-08-16] MEDS: ENOXAPARIN 40 MG/0.4 ML (LOVENOX) SYR SC SCH (21:41)
[2016-08-16] MEDS: ZOLPIDEM 5 MG (AMBIEN) TAB PO PRN (21:41)
[2016-08-17] VITALS (14 sets, daily range): BP systolic 82–145; BP diastolic 39–68
[2016-08-17 05:58] LABS: INR 1.5 (0.8-1.4); PROTHROMBIN TIME PATIENT 18.2 SEC (12.2-14.7); RED BLOOD COUNT 2.72 10^6/uL (4.35-5.85); RED CELL DISTRIBUTION WIDTH 20.8 % (10.0-14.5); WHITE BLOOD COUNT 14.2 10^3/uL (4.3-11.0)
[2016-08-17 06:18] LABS: ALBUMIN 2.2 GM/DL (3.2-4.5); BILIRUBIN,TOTAL 12.5 MG/DL (0.1-1.0); CALCIUM 7.3 MG/DL (8.5-10.1); CREATININE SERUM 1.36 MG/DL (0.60-1.30); MAGNESIUM 1.3 MG/DL (1.8-2.4); POTASSIUM 3.9 MMOL/L (3.6-5.0); TOTAL PROTEIN 5.1 GM/DL (6.4-8.2)
[2016-08-17 07:33] LABS: FOLIC ACID 2.9 ng/mL (1.5-24.0)
[2016-08-17] MEDS: IBUPROFEN 600 MG (MOTRIN) TAB PO PRN (08:05)
[2016-08-17] MEDS: FUROSEMIDE 40 MG (LASIX) TAB PO SCH (08:05)
[2016-08-17] MEDS: MULTIVIT W/MINERALS TAB (THERAGRAN M) PO SCH (08:05)
[2016-08-17] MEDS: THIAMINE 100 MG (VITAMIN B-1) TAB PO SCH (08:05)
--- NOTE | 2016-08-17 09:41 | Physical Therapy Evaluation ---
PT Evaluation-General Medical Diagnosis Admission Date Aug 14, 2016 at 20:47 Medical Diagnosis: hepatic encephalopathy Onset Date: Aug 14, 2016 Therapy Diagnosis Therapy Diagnosis: generalized weakness and debility Height/Weight Height (Feet): 5 Height (Inches): 1.00 Weight (Pounds): 410 Weight (Ounces): 9.0 Precautions Precautions/Isolations: Fall Prevention, Standard Precautions Referral Physician: Raheem Reason for Referral: Evaluation/Treatment Medical History Pertinent Medical History: Alcoholism, Arthritis, HTN Additional Medical History Hep C Current History increase SOA and weakness for 3-6 months UTI Reviewed History: Yes Social History Home: Apartment Current Living Status: Alone Entry Into Home: Stairs With Railing PT Steps Into Home: 20 Prior/Core FIM Prior Level of Function Functional [place] Measure 0=Not Assessed/NA 4=Minimal Assistance 1=Total Assistance 5=Supervision or Setup 2=Maximal Assistance 6=Modified [place] 3=Moderate Assistance 7=Complete [place] Bed Mobility: 7 Transfers (B,C,W/C) (FIM): 7 Gait: 7 PT Evaluation-Current Subjective Patient states she is feeling better, however, continues to be weak. Pain Numeric Pain Scale: 0-No Pain Location: No Pain Reported Objective Patient Orientation: Normal For Age Problem Solving: Good Attachments: Oxygen ROM/Strength ROM Lower Extremities decrease ROM due to severe edema bilaterally Strenght Lower Extremities bilateral LE WFL grossly Integumentary/Posture Integumentary refer to nursing notes Bowel Incontinence: No Bladder Incontinence: No Posture WNL Neuromuscular (Tone, Coordination, Reflexes) grossly intact Sensory Vision: Wears Glasses Hearing: Functional Sensation Right Lower Extremit: Intact Sensation Left Lower Extremity: Intact Transfers Functional [place] Measure 0=Not Assessed/NA 4=Minimal Assistance 1=Total Assistance 5=Supervision or Setup 2=Maximal Assistance 6=Modified [place] 3=Moderate Assistance 7=Complete [place] Transfers (B, C, W/C) (FIM): 3 Scootin Rollin Supine to/from Sit: 3 Sit to/from Stand: 5 SBA with sit to stand mod assist for assistance of bilateral LE due to edema (patient prefers family to assist) Gait Mode of Locomotion: Walk Anticipated Mode of Locomotion: Walk Gait (FIM): 1 Distance (FIM): 1=up to 49 ft Distance: 15' Gait Level of Assist: 5 Gait Persons Needed: 1 Gait Assistive Device: FWW Comments/Gait Description trunk flexed posture with use of FWW Balance Sitting Static: Normal Sitting Dynamic: Normal Standing Static: Normal Standing Dynamic: Normal Assessment/Needs 56 y.o. female, will benefit from short term skilled PT to address functional mobility to safely return to home with family. Patient is limited due to fatigue/weakness from diagnosis. RN notified of PT instructing patient and family to be up ad annemarie in room to and from restroom PRN. Rehab Potential: Guarded Post Rehab Potential-Barriers: hepatic encephalopathy PT Prison Goals Prison Goals PT Mechanical Systems Design Engineer Goals Time Frame: Aug 28, 2016 Transfers (B,C,W/C) (FIM): 5 Gait (FIM): 2 Gait distance (FIM): 1=450-04 ft Distance: 150' Gait Level of Assist: 5 Gait Assistive Device: FWW Stairs (FIM): 2 # of Steps: 4 Stairs Level Of Assist: 5 PT Plan Problem List Problem List: Activity Tolerance, Gait, Bed Mobility Treatment/Plan Treatment Plan: Continue Plan of Care Treatment Plan: Bed Mobility, Education, Functional Activity Braden, Functional Strength, Gait, Safety, Therapeutic Exercise, Transfers Treatment Duration: Aug 28, 2016 Frequency: 6 times per week Estimated Hrs Per Day: .5 hour per day (or PRN) Patient and/or Family Agrees t: Yes Safety Risks/Education Patient Education: Disease Process, Safety Issues Teaching Recipient: Patient, Family Teaching Methods: Discussion Response to Teaching: Verbalize Understanding Discharge Recommendations Therapy D/C Recommendations: Home w/ Family Support Time/GCodes Time In: 840 Time Out: 905 Total Billed Treatment Time: 25 Total Billed Treatment 1 visit EVMod 25 min G Codes Necessary: SIS Milner PT Aug 17, 2016 09:41
[2016-08-17] MEDS: CEFDINIR 300 MG (OMNICEF) CAP PO SCH ×2 (09:49→20:10)
[2016-08-17] MEDS: MAGNESIUM OXIDE (MAG-OX)400 MG TAB PO SCH ×2 (09:49→20:10)
[2016-08-17] MEDS: FOLIC ACID 1 MG TAB PO SCH (09:49)
[2016-08-17] MEDS: LACTULOSE SYRUP 10GM/15ML (ENULOSE) 30ML UDC PO SCH ×3 (09:49→22:22)
[2016-08-17] MEDS ORDERED: LORazepam 0.5 MG (ATIVAN) TABLET ONE (12:02)
[2016-08-17] MEDS: LORazepam 0.5 MG (ATIVAN) TABLET PO PRN ×2 (12:11→20:11)
[2016-08-17] MEDS: ALBUMIN 25% 25 GM/100 ML IV (PRE-MIX) IV SCH ×6 (13:48→17:34)
[2016-08-17] MEDS ORDERED: NS IV 1000 ML 1,000 ML ONE (14:07)
--- NOTE | 2016-08-17 14:35 | Progress Note (SOAP) ---
Subjective Subjective/Events-last exam Patient very anxious, depressed today. States she was drinking 1/5 of vodka after her HCV ab came back positive. She has been extremely weak in the past month. Still very shaky. has a lot of edema still. urinating with stools - thinks this is not getting counted in her I/O totals. Review of Systems Date Seen by Provider: Aug 17, 2016 Time Seen by Provider: 09:00 Pulmonary: Dyspnea Cardiovascular: No: Chest Pain Objective Exam Last Set of Vital Signs Vital Signs Date Time Temp Pulse Resp B/P (MAP) Pulse Ox O2 Delivery O2 Flow Rate FiO2 08/17/16 08:00 98 Room Air 08/17/16 07:39 97.6 100 16 104/56 2.00 Capillary Refill : Less Than 3 SecondsLess Than 3 Seconds I&O Intake and Output 08/17/16 00:00 Intake Total 2912 ml Balance 2912 ml Intake Oral 2812 ml IV Total 100 ml # Voids 8 # Bowel Movements 12 General: Alert, Oriented X3, Cooperative, Mild Distress Lungs: Clear to Auscultation, Normal Air Movement Heart: Regular Rate, Normal S1, Normal S2, No Murmurs, Gallops, Rubs Abdomen: Normal Bowel Sounds, Soft, No Tenderness, Other (morbid obesity) Extremities: Other (3-4+ edema to thighs bilaterally, sacral pitting edema as well) Skin: Other (spider angiomatas on chest) Neuro: Normal Speech, Normal Tone, Sensation Intact Psych/Mental Status: Mental Status NL, Mood NL Results/Procedures Lab Laboratory Tests 08/16/16 17:15: Sodium Level 131L, Potassium Level 3.7, Chloride Level 95L, Carbon Dioxide Level 25, Anion Gap 11, Blood Urea Nitrogen 13, Creatinine 1.06, Estimat Glomerular Filtration Rate 54, BUN/Creatinine Ratio 12, Glucose Level 128H, Calcium Level 7.4L, Magnesium Level 1.3L 08/17/16 05:35: Sodium Level 129L, Potassium Level 3.9, Chloride Level 94L, Carbon Dioxide Level 26, Anion Gap 9, Blood Urea Nitrogen 15, Creatinine 1.36H, Estimat Glomerular Filtration Rate 41, BUN/Creatinine Ratio 11, Glucose Level 140H, Calcium Level 7.3L, Magnesium Level 1.3L, White Blood Count 14.2H, Red Blood Count 2.72L, Hemoglobin 9.0L, Hematocrit 29L, Mean Corpuscular Volume 106H, Mean Corpuscular Hemoglobin 33, Mean Corpuscular Hemoglobin Concent 31L, Red Cell Distribution Width 20.8H, Platelet Count 213, Mean Platelet Volume 10.0, Prothrombin Time 18.2H, INR Comment 1.5H, Total Bilirubin 12.5H, Aspartate Amino Transf (AST/SGOT) 223H, Alanine Aminotransferase (ALT/SGPT) 66H, Alkaline Phosphatase 377H, Ammonia 50H, Total Protein 5.1L, Albumin 2.2L Microbiology 08/15/16 Urine Culture - Final, Complete Escherichia Coli Non-Enterococcus Group D Strep Radiology CXR 08/14: DRAFT IMPRESSION: Allowing for the shallow degree of inspiration, there is no evidence for an acute cardiopulmonary abnormality. 08/16: Abdominal US: Overall obscured imaging. Hepatomegally noted. No ascites identified. IMPRESSION: 1. Overall, abdominal sonogram is heavily obscured secondary to patient body habitus and poor acoustic windows. 2. Hepatomegaly with hepatic steatosis. Hepatic steatosis also heavily obscured as underlying hepatic parenchymal. 3. Portal vein is obscured, but does appear to show hepatopetal flow. 4. Splenic vein suboptimally visualized. Assessment/Plan Assessment/Plan Admission Dx 08/15-08/16 1. Suspect hepatic encephalopathy 2. Suspect chronic hepatitis C 3. Transaminitis/hyperbilirubinemia 4. UTI 5. Hyponatremia 6. Leukocytosis 7. Macrocytic anemia 8. Thrombocytopenia 9. Excessive alcohol use Plan Stable but continues with critically abnormal liver tests including mild elevation in AST/ALT with disproportionate increase in bilirubin/alk phos suggestive of acute alcoholic hepatitis. Given worsening PT/INR, today her discrimination factor for alcoholic liver disease eval is above 32, discussed with Hepatology publications writer at (Dr. Bundy) and studies on prednisolone for alcoholic hepatitis are not in presence of Hep C, and steroids could worsen Hep C, so recommend awaiting hep C PCR and continuing supportive care. Her mentation and mobility are improved today. They are willing to take patient in transfer should condition worsen, and if stable, Dr. Bundy would be willing to see her in clinic soon after discharge. MELD score is 20 suggesting significant risk of short term (3 month) mortality but would need to be abstinent from alcohol for 6 months typically prior to transplant consideration. Discussed this with patient and she states she is ready to make whatever changes are necessary, but is concerned due to her lack of insurance, will have social welfare clerk see her tomorrow to try to connect her with resources to start process of looking into disability, etc. ALCOHOLIC HEPATITIS 08/17 - Discriminant Function 35 today. Meld 32. Spoke with Dr Jeni Banks at regarding severity of issues. Will hold on steroids as they are not always beneficial, and she does have the hepatitis C. We will do a low-dose norepinephrine drip to help mobilize fluids. In addition, have ordered 1mg/kg of albumin to be slowly infused over 4h. Will then give lasix behind it. Felix cath placed to improved accuracy of I/O. Have consulted anesthesia for art line - goal for NE drip is to increase MAP to 10mmHg higher than it has been , appx 80-90. have consulted Dr Sullivan for IJ placement for NE and improved venous access. 1800mL fluid restriction (orally), 2g Na diet. PROBABLE CHRONIC HCV INFECTION 08/17 - awaiting PCR to quantify presence of active infection HYPONATREMIA 08/17 - poor prognostic factor. will watch sodium/fluid balance carefully. goal is to remove 1-2L daily (net). HYPOALBUMINEMIA 7/ - replacing at 1 gm/kg. will do much smaller doses tomorrow, if any, depending on pulmonary and/or renal status. ACUTE KIDNEY INJURY 2/2 HEPATORENAL SYNDROME LYMPHEDEMA 08/17 - poor prognostic indicator. infusing albumin with cautious lasix doses. The patient is also supramorbidly obese with lymphedema, making it more difficult to tell intravascular volume. again, CVP measurements are important here. ELEVATED BILIRUBIN HEPATIC ENCEPHALOPATHY 08/17 - poor prognostic indicator. lactulose ordered for goal 2-4 loose BM per day. THROMBOCYTOPENIA ELEVATED INR /10 - DC'd lovenox, will rely on SCDs for DVT prevention. have also DC'd motrin. UTI / - cefdinir for UTI. LEUKOCYTOSIS /10 - could be from the alcoholic hepatitis rather than UTI. more likely to be AH rather than infectious as she is already on antibiotics and the WBC are rising. DEPRESSION 7/ - pt with significant anxiety. will use very low dose ativan, have asked nurse not to use this unless patient requests for sleep or if she has a florid anxiety attack. I do not want respiratory compromise in this severely ill patient. ALCOHOLISM 08/17 - will ask Julita Wilson form [facility] to visit patient, tell her about our services. DEBILITY 08/17 - PT/OT ordered. will do what we can while acutely ill in hospital. Have had a very clear discussion with patient, her son and iva regarding her severely ill status. Jacy very much wanted to stay in [place], and Dr Banks has assured me he will be available by phone consult for any additional questions. Should patient or I believe that transfer is necessary, we will arrange. We will continue to monitor the situaiton closely to assure we are doing everything we can for Jacy. Diagnosis/Problems: Clinical Quality Measures DVT/VTE Risk/Contraindication: Risk Factor Score Per Nursin RFS Level Per Nursing on Admit: 4+=Very High EMERITA ENG MD Aug 17, 2016 2:35 pm
--- NOTE | 2016-08-17 14:40 | Progress Note-Standard ---
Standard Progress Note Progress Notes/Assess & Plan Date Seen by Provider: Aug 17, 2016 Time Seen by Provider: 14:20 Progress/Assessment & Plan Anesthesia Note ([id number]) Called to ICU for Arterial Line placement. Rt radial arterial line (20 G) placed after sterile prep with ChloraPrep. Secured with OpSite with good waveform. Pt tolerated procedure reasonably well. Will be available if needed. STEFANO ROMERO DO Aug 17, 2016 14:40
--- NOTE | 2016-08-17 16:49 | Consultation ---
History of Present Illness History of Present Illness Patient Consulted On(neftali/time) 08/17/16 16:43 Time Seen by Provider: 16:07 History of Present Illness Surgery asked to consult regarding cetnral line placement. Pt has need of fluids, tired of being "stuck" and they are having a hard time getting/keeping IV's. Also needs possible CVP monitoring. HPI: 56 yo female presented to ER (on 08/14) after a few days of acute worsening of chronic weakness and fatigue. Over the last few days, she has been essentially so weak that she is unable to get to the bathroom without assistance. Per her daughter, she has been very drowsy and in and out of sleep all the time, more forgetful than usual. She has had very little intake but in spite of that, has had no urinary output in a day or longer. She was noted to have slightly elevated liver enzymes in May outpatient and had a hepatitis panel checked which showed positive antibody to Hepatitis C. An ultrasound was ordered, but she did not have it done and has not yet had Hep C pcr testing. She has continued to drink a significant amount of alcohol. She states she wants to quit, but was worried about having seizures at home where she lives alone. When seen today pt is upset, tired of needles and not happy about line placement. She is weak, denies abdominal pain. +BM Allergies and Home Medications Allergies Coded Allergies: No Known Drug Allergies (Unverified , 08/14/16) Home Medications Albuterol Sulfate 6.7 Gm Hfa.aer.ad, 2 PUFF IH Q6H PRN for SHORTNESS OF BREATH, (Reported) Past Vhqthga-Vnilja-Khofnl Hx Patient Social History Alcohol Use: Regular Use Recreational Drug Use: No Smoking Status: Former Smoker Recent Foreign Travel: No Contact w/Someone Who Travel: No Recent Infectious Disease Expo: No Recent Hopitalizations: No Physical Abuse Screen: No Sexual Abuse: No Seasonal Allergies Seasonal Allergies: No Surgeries HX Surgeries: Yes Surgeries: Section (x 4) Respiratory Hx Respiratory Disorders: Yes Respiratory Disorders: Asthma Cardiovascular Hx Cardiac Disorders: Yes Cardiac Disorders: Hypertension Neurological Hx Neurological Disorders: No Reproductive System : No Hx Reproductive Disorders: No Genitourinary Hx Genitourinary Disorders: No Gastrointestinal Hx Gastrointestinal Disorders: Yes Gastrointestinal Disorders: Gastroesophageal Reflux Musculoskeletal Hx Musculoskeletal Disorders: Yes Musculoskeletal Disorders: Arthritis, Chronic Back Pain Endocrine Hx Endocrine Disorders: No HEENT HX ENT Disorders: No Loss of Vision: Denies Hearing Impairment: Denies Cancer Hx Cancer: Yes Cancer: Cervical Psychosocial Hx Psychiatric Problems: Yes Behavioral Health Disorders: Anxiety, Depression Integumentary HX Skin/Integumentary Disorder: No Blood Transfusions Hx Blood Disorders: Yes (Hep C) Adverse Reaction to a Blood Tr: No Family Medical History Significant Family History: Cancer (lung), Diabetes Review of Systems-General Constitutional: No diaphoresis, dizziness, malaise, weakness EENTM: No blurred vision, No epistaxis, No hearing loss, No mouth swelling, No throat swelling Respiratory: No cough, No hemoptysis, No phlegm Cardiovascular: No chest pain, No edema, No palpitations Gastrointestinal: No abdominal pain, No constipation, No diarrhea, jaundice Genitourinary: No dysuria, No frequency, No hematuria : No Musculoskeletal: back pain, joint pain, joint swelling, muscle stiffness Skin: change in color, No lesions, pruritus Psychiatric/Neurological: Anxiety, Depressed, Denies Seizure, Denies Tingling, Denies Tremors Other denies any abnormal bruising or bleeding, no heat or cold intolerance Physical Exam-General Problems Physical Exam Vital Signs Vital Sign - Last 12Hours 08/14/16 08/15/16 16:35 01:43 Temp 99.0 Pulse 115 Resp 22 B/P (MAP) 139/71 Pulse Ox 97 O2 Delivery Room Air O2 Flow Rate 2.00 Capillary Refill : Less Than 3 SecondsLess Than 3 Seconds General Appearance: WD/WN, no apparent distress, obese Eyes: Bilateral Eye EOMI, Bilateral Eye PERRL HEENT: pharynx normal, scleral icterus (R), scleral icterus (L), No pharyngeal erythema Neck: non-tender, full range of motion, supple, normal inspection Respiratory: chest non-tender, lungs clear, normal breath sounds, no respiratory distress, no accessory muscle use Cardiovascular: regular rate, rhythm, no edema, no murmur Peripheral Pulses: 4+ Carotid (R), 4+ Carotid (L), 4+ Radial Pulses (R), 4+ Radial Pulses (L) Gastrointestinal: normal bowel sounds, non tender, soft, no pulsatile mass, hepatomegaly, No spleenomegaly Rectal: deferred Back: normal inspection, no CVA tenderness, no vertebral tenderness Extremities: normal range of motion, no pedal edema, no calf tenderness Neurologic/Psychiatric: home health lpn II-XII nml as tested, no motor/sensory deficits, alert, normal mood/affect, oriented x 3 Skin: warm/dry, jaundice Lymphatic: no adenopathy (neck, axilla or groin) Data Review Labs Laboratory Tests 08/16/16 17:15: Sodium Level 131L, Potassium Level 3.7, Chloride Level 95L, Carbon Dioxide Level 25, Anion Gap 11, Blood Urea Nitrogen 13, Creatinine 1.06, Estimat Glomerular Filtration Rate 54, BUN/Creatinine Ratio 12, Glucose Level 128H, Calcium Level 7.4L, Magnesium Level 1.3L 08/17/16 05:35: Sodium Level 129L, Potassium Level 3.9, Chloride Level 94L, Carbon Dioxide Level 26, Anion Gap 9, Blood Urea Nitrogen 15, Creatinine 1.36H, Estimat Glomerular Filtration Rate 41, BUN/Creatinine Ratio 11, Glucose Level 140H, Calcium Level 7.3L, Magnesium Level 1.3L, White Blood Count 14.2H, Red Blood Count 2.72L, Hemoglobin 9.0L, Hematocrit 29L, Mean Corpuscular Volume 106H, Mean Corpuscular Hemoglobin 33, Mean Corpuscular Hemoglobin Concent 31L, Red Cell Distribution Width 20.8H, Platelet Count 213, Mean Platelet Volume 10.0, Prothrombin Time 18.2H, INR Comment 1.5H, Total Bilirubin 12.5H, Aspartate Amino Transf (AST/SGOT) 223H, Alanine Aminotransferase (ALT/SGPT) 66H, Alkaline Phosphatase 377H, Ammonia 50H, Total Protein 5.1L, Albumin 2.2L Microbiology 08/15/16 Urine Culture - Final, Complete Escherichia Coli Non-Enterococcus Group D Strep Assessment/Plan Assessment/Plan Assessment/Plan Venous Insufficiency Liver Failure Jaundice Hep C EtOH abuse Morbid obesity Hyponatremia Plan is central line insertion, left IJ with US guidance. Discussed risks and complications with pt; not limited to pain, bleeding, infection, scar and pneumothorax. All questions answered to her satisfaction. This consult was necessary to assess the pt, her labs (coags), and discuss procedure with her. Clinical Quality Measures DVT/VTE Risk/Contraindication: Risk Factor Score Per Nursin RFS Level Per Nursing on Admit: 4+=Very High COLETTE PENA DO Aug 17, 2016 16:48
--- NOTE | 2016-08-17 17:06 | Diagnostic Imaging Report ---
INDICATION: Central line placement. EXAMINATION: Portable chest at 04:42 p.m. FINDINGS: Right jugular central line tip projects over the SVC. Heart size and pulmonary vascularity are normal. Lungs are clear. There are no effusions or pneumothoraces. IMPRESSION: No acute abnormalities in the chest. Dictated by: Dictated on workstation # [id number]
[2016-08-17] MEDS: NOREPINEPHRINE 4 MG in D5W 250 ML (IVPB) 250 ML IV SCH (17:33)
[2016-08-17] MEDS ORDERED: FUROSEMIDE 40 MG/4 ML INJ (LASIX) IV NR (18:00)
[2016-08-17] MEDS: SERTRALINE 50 MG (ZOLOFT) TABLET PO SCH (20:10)
[2016-08-17] MEDS: MICONAZOLE 2% POWDER (DESENEX AF) 90 GM TOP SCH (20:11)
[2016-08-17 21:54] LABS: CALCIUM 7.7 MG/DL (8.5-10.1); CREATININE SERUM 1.36 MG/DL (0.60-1.30); POTASSIUM 3.7 MMOL/L (3.6-5.0)
[2016-08-18] VITALS (22 sets, daily range): BP systolic 95–136; BP diastolic 43–62
[2016-08-18] MEDS ORDERED: FUROSEMIDE 40 MG/4 ML INJ (LASIX) IVP ONE (02:00)
[2016-08-18 05:03] LABS: BASOPHILS # (AUTO) 0.3 10^3/uL (0.0-0.1); BASOPHILS % (AUTO) 2 % (0-10); EOSINOPHILS # (AUTO) 0.2 10^3/uL (0.0-0.3); EOSINOPHILS % (AUTO) 1 % (0-10); LYMPHOCYTES # (AUTO) 3.3 X 10^3 (1.0-4.0); LYMPHOCYTES % (AUTO) 20 % (12-44); MEAN CORPUSCULAR HEMOGLOBIN 33 PG (25-34); MEAN CORPUSCULAR HGB CONC 32 G/DL (32-36); MEAN CORPUSCULAR VOLUME 105 FL (80-99); MEAN PLATELET VOLUME 9.7 FL (7.4-10.4); MONOCYTES # (AUTO) 2.2 X 10^3 (0.0-1.0); MONOCYTES % (AUTO) 14 % (0-12); NEUTROPHILS # (AUTO) 10.2 X 10^3 (1.8-7.8); NEUTROPHILS % (AUTO) 63 % (42-75); PLATELET COUNT 210 10^3/uL (130-400); RED BLOOD COUNT 2.53 10^6/uL (4.35-5.85); RED CELL DISTRIBUTION WIDTH 21.2 % (10.0-14.5); WHITE BLOOD COUNT 16.2 10^3/uL (4.3-11.0)
[2016-08-18 05:17] LABS: INR 1.7 (0.8-1.4)
[2016-08-18 05:22] LABS: ALBUMIN 2.9 GM/DL (3.2-4.5); BILIRUBIN,TOTAL 14.4 MG/DL (0.1-1.0); CALCIUM 7.3 MG/DL (8.5-10.1); CREATININE SERUM 1.18 MG/DL (0.60-1.30); POTASSIUM 3.5 MMOL/L (3.6-5.0); TOTAL PROTEIN 5.4 GM/DL (6.4-8.2)
[2016-08-18 05:25] LABS: ANISOCYTOSIS MARKED; BAND NEUTROPHILS 11 %; BASOPHILS % (MANUAL) 0 %; EOSINOPHILS % (MANUAL) 1 %; HYPOCHROMASIA MODERATE; LYMPHOCYTES % (MANUAL) 13 %; METAMYELOCYTES % 2 %; MICROCYTOSIS SLIGHT; NEUTROPHILS % (MANUAL) 60 %; POLYCHROMASIA SLIGHT; REACTIVE LYMPHOCYTES 3 %; STOMATOCYTES SLIGHT; TARGET CELLS MODERATE
[2016-08-18] MEDS: NOREPINEPHRINE 4 MG in D5W 250 ML (IVPB) 250 ML IV SCH ×2 (06:11→13:21)
[2016-08-18] MEDS: MULTIVIT W/MINERALS TAB (THERAGRAN M) PO SCH (06:43)
[2016-08-18] MEDS: FUROSEMIDE 40 MG (LASIX) TAB PO SCH ×2 (06:43→17:10)
--- NOTE | 2016-08-18 07:40 | Diagnostic Imaging Report ---
INDICATION: Mild hepatic encephalopathy. COMPARISON STUDY: Chest from yesterday. FINDINGS: Frontal view of the chest demonstrates heart size upper normal. A central venous catheter remains in good position. Lungs are clear. The vascularity is normal. IMPRESSION: Stable borderline cardiomegaly. Dictated by: Dictated on workstation # [id number]
--- NOTE | 2016-08-18 08:28 | Physical Therapy Progress Note ---
Therapy Progress Note Patient transferred to ICU. No PT orders followed. PT to await further orders and will continue to monitor patient status. SIS VELÁSQUEZ PT Aug 18, 2016 08:28
[2016-08-18] MEDS: FOLIC ACID 1 MG TAB PO SCH (09:09)
[2016-08-18] MEDS: LACTULOSE SYRUP 10GM/15ML (ENULOSE) 30ML UDC PO SCH ×2 (09:09→15:22)
[2016-08-18] MEDS: CEFDINIR 300 MG (OMNICEF) CAP PO SCH ×2 (09:09→21:21)
[2016-08-18] MEDS: MICONAZOLE 2% POWDER (DESENEX AF) 90 GM TOP SCH ×2 (10:03→21:21)
--- NOTE | 2016-08-18 11:18 | Progress Note (SOAP) ---
Subjective Subjective/Events-last exam Pt very upset this morning that she had stooled on herself. Refused lactulose last night. States her legs are less painful and swollen. Review of Systems Date Seen by Provider: Aug 18, 2016 Time Seen by Provider: 09:00 Pulmonary: No Dyspnea, No Cough Objective Exam Last Set of Vital Signs Vital Signs Date Time Temp Pulse Resp B/P (MAP) Pulse Ox O2 Delivery O2 Flow Rate FiO2 08/18/16 10:00 101 23 121/47 98 Nasal Cannula 5.00 08/18/16 09:13 98.3 Capillary Refill : Less Than 3 SecondsLess Than 3 Seconds I&O Intake and Output 08/18/16 00:00 Intake Total 2862 ml Output Total 480 ml Balance 2382 ml Intake Oral 2162 ml IV Total 700 ml Output Urine Total 480 ml # Voids 3 # Bowel Movements 6 General: Alert, Oriented X3, Cooperative, No Acute Distress Lungs: Clear to Auscultation, Normal Air Movement Heart: Regular Rate, Normal S1, Normal S2, No Murmurs, Gallops, Rubs Abdomen: Normal Bowel Sounds, Soft, No Tenderness, Other (supramorbidly obese) Extremities: No Clubbing, No Cyanosis, Other (2-3+ pitting edema, 2+ sacral edema) Skin: No Rashes, No Breakdown, No Significant Lesion Neuro: Normal Speech, Strength at 5/5 X4 Ext, Normal Tone, Sensation Intact Psych/Mental Status: Mental Status NL, Mood NL Results/Procedures Lab Laboratory Tests 08/17/16 21:23: Sodium Level 132L, Potassium Level 3.7, Chloride Level 96L, Carbon Dioxide Level 25, Anion Gap 11, Blood Urea Nitrogen 19H, Creatinine 1.36H, Estimat Glomerular Filtration Rate 41, BUN/Creatinine Ratio 14, Glucose Level 119H, Calcium Level 7.7L 08/18/16 04:55: Sodium Level 131L, Potassium Level 3.5L, Chloride Level 96L, Carbon Dioxide Level 25, Anion Gap 10, Blood Urea Nitrogen 19H, Creatinine 1.18, Estimat Glomerular Filtration Rate 48, BUN/Creatinine Ratio 16, Glucose Level 117H, Calcium Level 7.3L, White Blood Count 16.2H, Red Blood Count 2.53L, Hemoglobin 8.4L, Hematocrit 27L, Mean Corpuscular Volume 105H, Mean Corpuscular Hemoglobin 33, Mean Corpuscular Hemoglobin Concent 32, Red Cell Distribution Width 21.2H, Platelet Count 210, Mean Platelet Volume 9.7, Neutrophils (%) (Auto) 63, Lymphocytes (%) (Auto) 20, Monocytes (%) (Auto) 14H, Eosinophils (%) (Auto) 1, Basophils (%) (Auto) 2, Neutrophils # (Auto) 10.2H, Lymphocytes # (Auto) 3.3, Monocytes # (Auto) 2.2H, Eosinophils # (Auto) 0.2, Basophils # (Auto) 0.3H, Neutrophils % (Manual) 60, Lymphocytes % (Manual) 13, Monocytes % (Manual) 10, Eosinophils % (Manual) 1, Basophils % (Manual) 0, Metamyelocytes % 2, Band Neutrophils 11, Nucleated Red Blood Cells 2, Reactive Lymphocytes 3, Polychromasia SLIGHT, Hypochromasia MODERATE, Anisocytosis MARKED, Microcytosis SLIGHT, Macrocytosis MARKED, Target Cells MODERATE, Stomatocytes SLIGHT, Prothrombin Time 20.0H, INR Comment 1.7H, Total Bilirubin 14.4H, Aspartate Amino Transf (AST/SGOT) 180H, Alanine Aminotransferase (ALT/SGPT) 55, Alkaline Phosphatase 317H, Ammonia 46H, Total Protein 5.4L, Albumin 2.9L Microbiology 08/15/16 Urine Culture - Final, Complete Escherichia Coli Non-Enterococcus Group D Strep Radiology CXR 08/14: DRAFT IMPRESSION: Allowing for the shallow degree of inspiration, there is no evidence for an acute cardiopulmonary abnormality. 08/16: Abdominal US: Overall obscured imaging. Hepatomegally noted. No ascites identified. IMPRESSION: 1. Overall, abdominal sonogram is heavily obscured secondary to patient body habitus and poor acoustic windows. 2. Hepatomegaly with hepatic steatosis. Hepatic steatosis also heavily obscured as underlying hepatic parenchymal. 3. Portal vein is obscured, but does appear to show hepatopetal flow. 4. Splenic vein suboptimally visualized. Assessment/Plan Assessment/Plan Admission Dx 08/15-08/16 1. Suspect hepatic encephalopathy 2. Suspect chronic hepatitis C 3. Transaminitis/hyperbilirubinemia 4. UTI 5. Hyponatremia 6. Leukocytosis 7. Macrocytic anemia 8. Thrombocytopenia 9. Excessive alcohol use Plan Stable but continues with critically abnormal liver tests including mild elevation in AST/ALT with disproportionate increase in bilirubin/alk phos suggestive of acute alcoholic hepatitis. Given worsening PT/INR, today her discrimination factor for alcoholic liver disease eval is above 32, discussed with Hepatology ping pong table assembler at (Dr. Bundy) and studies on prednisolone for alcoholic hepatitis are not in presence of Hep C, and steroids could worsen Hep C, so recommend awaiting hep C PCR and continuing supportive care. Her mentation and mobility are improved today. They are willing to take patient in transfer should condition worsen, and if stable, Dr. Bundy would be willing to see her in clinic soon after discharge. MELD score is 20 suggesting significant risk of short term (3 month) mortality but would need to be abstinent from alcohol for 6 months typically prior to transplant consideration. Discussed this with patient and she states she is ready to make whatever changes are necessary, but is concerned due to her lack of insurance, will have social media senior associate see her tomorrow to try to connect her with resources to start process of looking into disability, etc. ALCOHOLIC HEPATITIS 08/17 - Discriminant Function 35 today. Meld 32. Spoke with Dr Jeni Banks at regarding severity of issues. Will hold on steroids as they are not always beneficial, and she does have the hepatitis C. We will do a low-dose norepinephrine drip to help mobilize fluids. In addition, have ordered 1mg/kg of albumin to be slowly infused over 4h. Will then give lasix behind it. Calhoun cath placed to improved accuracy of I/O. Have consulted anesthesia for art line - goal for NE drip is to increase MAP to 10mmHg higher than it has been , appx 80-90. have consulted Dr Sullivan for IJ placement for NE and improved venous access. 1800mL fluid restriction (orally), 2g Na diet. 08/18 - DF 51. MELD 27. TAs decreasing, INR and bili up. Kidneys have improved which is the biggest prognostic indicator as yet. Will maintain debbie NE for another 24h - likely until the creatinine normalizes. still getting good fluid from albumin/lasix. Dr Banks recommends 25g lasix infused followed by lasix q12h for now. still watching carefuly I/O - goal is 2L net off. maintain calhoun for accurate I/O. holding on steroids still per Dr Banks recommendations. will give 5mg SQ vit K to ensure no nutritional deficiency at play. will plan to biopsy a month after hospitalization, will have no prognostic value at this point. PROBABLE CHRONIC HCV INFECTION 08/17 - awaiting PCR to quantify presence of active infection 08/18 - labs pending HYPONATREMIA 08/17 - poor prognostic factor. will watch sodium/fluid balance carefully. goal is to remove 1-2L daily (net). 08/18 - holding steady, will continue lasix diuresis. HYPOALBUMINEMIA 08/17 - replacing at 1 gm/kg. will do much smaller doses tomorrow, if any, depending on pulmonary and/or renal status. 08/18 - improved with albumin yesterday. will do 25g q12h followed by lasix. ACUTE KIDNEY INJURY 2/2 HEPATORENAL SYNDROME LYMPHEDEMA 08/17 - poor prognostic indicator. infusing albumin with cautious lasix doses. The patient is also supramorbidly obese with lymphedema, making it more difficult to tell intravascular volume. again, CVP measurements are important here. 08/18 - improved. will monitor BMP q 12h. ELEVATED BILIRUBIN HEPATIC ENCEPHALOPATHY 08/17 - poor prognostic indicator. lactulose ordered for goal 2-4 loose BM per day. 08/18 - sensorium improved, continue lactulose for now. THROMBOCYTOPENIA ELEVATED INR 08/17 - DC'd lovenox, will rely on SCDs for DVT prevention. have also DC'd motrin. 08/18 - platelets improved, still holding on lovenox and other anti-platelet tx d /t elevated INR. pt does appear to be bruising badly c/w clinical state. UTI 08/17 - cefdinir for UTI. 08/18 - day 4. LEUKOCYTOSIS 08/17 - could be from the alcoholic hepatitis rather than UTI. more likely to be AH rather than infectious as she is already on antibiotics and the WBC are rising. 08/18 - no sign of infection, will continue to monitor. DEPRESSION 08/17 - pt with significant anxiety. will use very low dose ativan, have asked nurse not to use this unless patient requests for sleep or if she has a florid anxiety attack. I do not want respiratory compromise in this severely ill patient. 08/18 - PRN ativan, have requested it be used cautiously. ALCOHOLISM 08/17 - will ask Julita Wilson [facility] to visit patient, tell her about our services. DEBILITY 08/17 - PT/OT ordered. will do what we can while acutely ill in hospital. 08/18 - will ask SW if there is any way she can go to rehab at discharge Have had a very clear discussion with patient, her son and iva regarding her severely ill status. Jacy very much wanted to stay in [place], and Dr Banks has assured me he will be available by phone consult for any additional questions. Should patient or I believe that transfer is necessary, we will arrange. We will continue to monitor the situaiton closely to assure we are doing everything we can for Jacy. 08/18 - overall, clinical sitaution is improved but remains precarious. family and patient aware we are taking things one day at a time. significant mortality associated with alcoholic hepatitis but kidneys improved today which is reassuring. will maintain in ICU and monitor closely for any changes. Diagnosis/Problems: Clinical Quality Measures DVT/VTE Risk/Contraindication: Risk Factor Score Per Nursin RFS Level Per Nursing on Admit: 4+=Very High EMERITA ENG MD Aug 18, 2016 11:18 am
[2016-08-18] MEDS: ALBUMIN 25% 25 GM/100 ML 100 ML IV SCH (15:23)
[2016-08-18] MEDS: LORazepam 0.5 MG (ATIVAN) TABLET PO PRN ×2 (15:23→23:04)
[2016-08-18] MEDS: SERTRALINE 50 MG (ZOLOFT) TABLET PO SCH (21:21)
[2016-08-18] MEDS ORDERED: OXYBUTYNIN (DITROPAN) 5 MG TAB ONE (21:31)
[2016-08-19] VITALS (22 sets, daily range): BP systolic 81–133; BP diastolic 44–91
[2016-08-19] MEDS: NOREPINEPHRINE 4 MG in D5W 250 ML (IVPB) 250 ML IV SCH ×2 (01:07→11:18)
[2016-08-19 04:46] LABS: INR 1.7 (0.8-1.4); PROTHROMBIN TIME PATIENT 19.6 SEC (12.2-14.7)
[2016-08-19 04:47] LABS: BASOPHILS # (AUTO) 0.2 10^3/uL (0.0-0.1); BASOPHILS % (AUTO) 1 % (0-10); EOSINOPHILS # (AUTO) 0.1 10^3/uL (0.0-0.3); EOSINOPHILS % (AUTO) 1 % (0-10); LYMPHOCYTES # (AUTO) 2.7 X 10^3 (1.0-4.0); LYMPHOCYTES % (AUTO) 16 % (12-44); MEAN CORPUSCULAR HEMOGLOBIN 33 PG (25-34); MEAN CORPUSCULAR HGB CONC 31 G/DL (32-36); MEAN CORPUSCULAR VOLUME 105 FL (80-99); MEAN PLATELET VOLUME 9.7 FL (7.4-10.4); MONOCYTES # (AUTO) 2.3 X 10^3 (0.0-1.0); MONOCYTES % (AUTO) 14 % (0-12); NEUTROPHILS # (AUTO) 11.5 X 10^3 (1.8-7.8); NEUTROPHILS % (AUTO) 69 % (42-75); PLATELET COUNT 208 10^3/uL (130-400); WHITE BLOOD COUNT 16.8 10^3/uL (4.3-11.0)
[2016-08-19 05:03] LABS: ALANINE AMINOTRANSFERASE 53 U/L (0-55); ALBUMIN 2.9 GM/DL (3.2-4.5); AMMONIA 60 UMOL/L (11-32); ANION GAP 11 MMOL/L (5-14); ASPARTATE AMINO TRANSFERASE 172 U/L (5-34); BILIRUBIN,TOTAL 17.1 MG/DL (0.1-1.0); BLOOD UREA NITROGEN 18 MG/DL (7-18); BUN/CREATININE RATIO 22; CALCIUM 7.4 MG/DL (8.5-10.1); CARBON DIOXIDE 24 MMOL/L (21-32); CHLORIDE 95 MMOL/L (98-107); CREATININE SERUM 0.81 MG/DL (0.60-1.30); GFR ESTIMATED > 60; GLUCOSE 114 MG/DL (70-105); MAGNESIUM 1.2 MG/DL (1.8-2.4); PHOSPHORUS 1.1 MG/DL (2.3-4.7); POTASSIUM 3.3 MMOL/L (3.6-5.0); SODIUM 130 MMOL/L (135-145); TOTAL PROTEIN 5.3 GM/DL (6.4-8.2)
[2016-08-19] MEDS: FUROSEMIDE 40 MG (LASIX) TAB PO SCH ×2 (05:51→16:25)
[2016-08-19] MEDS: MULTIVIT W/MINERALS TAB (THERAGRAN M) PO SCH (05:51)
[2016-08-19] MEDS: ALBUMIN 25% 25 GM/100 ML 100 ML IV SCH ×2 (05:52→16:25)
--- NOTE | 2016-08-19 08:08 | Diagnostic Imaging Report ---
Portable erect AP chest at 430 hours. INDICATION: Hepatic encephalopathy. FINDINGS: The borderline cardiomegaly noted on 08/18/16 is again evident and no different. The lungs are generally clear, although the right lung base is partially obscured by the elevated right hemidiaphragm. There is still no sign of failure, pneumonia or pleural effusion. The mediastinum is not widened. The osseous structures are intact. The right-sided PICC line noted previously remains unchanged in position. IMPRESSION: Stable chest. There has been no adverse change since the prior exam. Dictated by: Dictated on workstation # [id number]
[2016-08-19] MEDS: POTASSIUM CL 10MEQ/50ML IVPB 50 ML IV SCH ×5 (08:25→11:10)
[2016-08-19] MEDS: KCL 20 MEQ TAB (K-DUR) PO SCH (08:26)
[2016-08-19] MEDS: MAGNESIUM 1 GM/100 ML IVPB 100 ML IV SCH ×5 (08:26→13:43)
--- NOTE | 2016-08-19 10:14 | OPERATIVE REPORT ---
PROCEDURE PHYSICIAN: COLETTE SULLIVAN DATE OF PROCEDURE: 08/17/2016 PREOPERATIVE DIAGNOSES: 1. Venous insufficiency. 2. Liver failure. 3. Jaundice. 4. Morbid obesity. 5. Hyponatremia. 6. History of alcohol abuse. POSTOPERATIVE DIAGNOSES: 1. Venous insufficiency. 2. Liver failure. 3. Jaundice. 4. Morbid obesity. 5. Hyponatremia. 6. History of alcohol abuse. PROCEDURE: Insertion of central line with ultrasound guidance. SURGEON: Dr. Sullivan VETERINARY BACTERIOLOGIST: None. ANESTHESIA: Just local lidocaine. BLOOD LOSS: Scant. FLUIDS: Minimal. INDICATION FOR THE PROCEDURE: The patient is a 56-year-old female who unfortunately has liver failure. She is jaundiced and she has venous insufficiency, they need access for blood draws, IV fluids and possible CVP and they are having a hard time with IVs. FINDINGS: The patient had a right IJ placed with ultrasound guidance. PROCEDURE NOTE: After informed consent was obtained patient was in her bed. She was sterilely prepped and draped in the normal fashion. Local lidocaine used to infiltrate the skin of the right neck. Then using the ultrasound guidance, found the right IJ and then advanced the needle under ultrasound guidance, watched it go into the vein, good flash of blood. Removed the syringe. Placed a guidewire down the needle using Seldinger technique. It went in easily. Removed the needle and then made a stab incision along the wire with a number 11 blade. Then over the guidewire placed the dilator using Seldinger technique, went in easily and then removed this and then placed the triple-lumen catheter. Again it went in easily. Used the Seldinger technique over the wire and then removed the wire. Had checked with ultrasound the wire was going down the IJ. Next, placed on the triple lumen and then checked all 3 ports. Good flash of blood and then easily flushed in all 3 ports. It was then sutured in place with a 2-0 silk suture. The area was then cleaned and dried. OpSite placed as well as the antibiotic disc. The patient tolerated the procedure well and chest x-ray was ordered. Grossly the chest x-ray was fine, central line in the right place. It did not look like there was any pneumothorax but wait for the radiology final reading. Job ID: [id number] Dictated Date: 08/17/2016 16:57:59 Wildlife Protector Date: 08/19/2016 09:15:48 / tbk
[2016-08-19] MEDS: LACTULOSE SYRUP 10GM/15ML (ENULOSE) 30ML UDC PO SCH (10:23)
[2016-08-19] MEDS: CEFDINIR 300 MG (OMNICEF) CAP PO SCH ×2 (10:25→20:06)
[2016-08-19] MEDS: FOLIC ACID 1 MG TAB PO SCH (10:25)
[2016-08-19] MEDS: MICONAZOLE 2% POWDER (DESENEX AF) 90 GM TOP SCH ×2 (10:25→20:06)
--- NOTE | 2016-08-19 10:58 | Progress Note (SOAP) ---
Subjective Subjective/Events-last exam Pt improved mood today. Wants art line out. Still having multiple (>10) stools per day. Gluteal region red/swollen. Now in bariatric air bed. Review of Systems Date Seen by Provider: Aug 19, 2016 Time Seen by Provider: 10:00 Pulmonary: No Dyspnea, No Cough Objective Exam Last Set of Vital Signs Vital Signs Date Time Temp Pulse Resp B/P (MAP) Pulse Ox O2 Delivery O2 Flow Rate FiO2 08/19/16 07:00 100 08/19/16 06:57 98.6 08/19/16 06:00 37 119/54 94 Nasal Cannula 5.00 Capillary Refill : Less Than 3 SecondsLess Than 3 Seconds I&O Intake and Output 08/19/16 00:00 Intake Total 2204 ml Output Total 1725 ml Balance 479 ml Intake Oral 1850 ml IV Total 354 ml Output Urine Total 1725 ml # Bowel Movements 9 General: Alert, Oriented X3, Cooperative, No Acute Distress Lungs: Clear to Auscultation, Normal Air Movement Heart: Regular Rate, Normal S1, Normal S2, No Murmurs, Gallops, Rubs Abdomen: Normal Bowel Sounds, Soft, No Tenderness Extremities: Other (1-2+ edema bilateral legs) Psych/Mental Status: Mental Status NL, Mood NL Results/Procedures Lab Laboratory Tests 08/19/16 04:15: White Blood Count 16.8H, Red Blood Count 2.70L, Hemoglobin 8.9L, Hematocrit 28L , Mean Corpuscular Volume 105H, Mean Corpuscular Hemoglobin 33, Mean Corpuscular Hemoglobin Concent 31L, Red Cell Distribution Width 22.0H, Platelet Count 208, Mean Platelet Volume 9.7, Neutrophils (%) (Auto) 69, Lymphocytes (%) (Auto) 16, Monocytes (%) (Auto) 14H, Eosinophils (%) (Auto) 1, Basophils (%) ( Auto) 1, Neutrophils # (Auto) 11.5H, Lymphocytes # (Auto) 2.7, Monocytes # (Auto ) 2.3H, Eosinophils # (Auto) 0.1, Basophils # (Auto) 0.2H, Prothrombin Time 19.6H, INR Comment 1.7H, Sodium Level 130L, Potassium Level 3.3L, Chloride Level 95L, Carbon Dioxide Level 24, Anion Gap 11, Blood Urea Nitrogen 18, Creatinine 0.81, Estimat Glomerular Filtration Rate > 60, BUN/Creatinine Ratio 22, Glucose Level 114H, Calcium Level 7.4L, Phosphorus Level 1.1L, Magnesium Level 1.2L, Total Bilirubin 17.1#H, Aspartate Amino Transf (AST/SGOT) 172H, Alanine Aminotransferase (ALT/SGPT) 53, Alkaline Phosphatase 304H, Ammonia 60H, Total Protein 5.3L, Albumin 2.9L, Smear Scan YES Microbiology 08/15/16 Urine Culture - Final, Complete Escherichia Coli Non-Enterococcus Group D Strep Radiology CXR 08/14: DRAFT IMPRESSION: Allowing for the shallow degree of inspiration, there is no evidence for an acute cardiopulmonary abnormality. 08/16: Abdominal US: Overall obscured imaging. Hepatomegally noted. No ascites identified. IMPRESSION: 1. Overall, abdominal sonogram is heavily obscured secondary to patient body habitus and poor acoustic windows. 2. Hepatomegaly with hepatic steatosis. Hepatic steatosis also heavily obscured as underlying hepatic parenchymal. 3. Portal vein is obscured, but does appear to show hepatopetal flow. 4. Splenic vein suboptimally visualized. Assessment/Plan Assessment/Plan Admission Dx 08/15-08/16 1. Suspect hepatic encephalopathy 2. Suspect chronic hepatitis C 3. Transaminitis/hyperbilirubinemia 4. UTI 5. Hyponatremia 6. Leukocytosis 7. Macrocytic anemia 8. Thrombocytopenia 9. Excessive alcohol use Plan Stable but continues with critically abnormal liver tests including mild elevation in AST/ALT with disproportionate increase in bilirubin/alk phos suggestive of acute alcoholic hepatitis. Given worsening PT/INR, today her discrimination factor for alcoholic liver disease eval is above 32, discussed with Hepatology executive consultant at (Dr. Bundy) and studies on prednisolone for alcoholic hepatitis are not in presence of Hep C, and steroids could worsen Hep C, so recommend awaiting hep C PCR and continuing supportive care. Her mentation and mobility are improved today. They are willing to take patient in transfer should condition worsen, and if stable, Dr. Bundy would be willing to see her in clinic soon after discharge. MELD score is 20 suggesting significant risk of short term (3 month) mortality but would need to be abstinent from alcohol for 6 months typically prior to transplant consideration. Discussed this with patient and she states she is ready to make whatever changes are necessary, but is concerned due to her lack of insurance, will have oncology social work see her tomorrow to try to connect her with resources to start process of looking into disability, etc. ALCOHOLIC HEPATITIS 08/17 - Discriminant Function 35 today. Meld 32. Spoke with Dr Jeni aBnks at regarding severity of issues. Will hold on steroids as they are not always beneficial, and she does have the hepatitis C. We will do a low-dose norepinephrine drip to help mobilize fluids. In addition, have ordered 1mg/kg of albumin to be slowly infused over 4h. Will then give lasix behind it. Calhoun cath placed to improved accuracy of I/O. Have consulted anesthesia for art line - goal for NE drip is to increase MAP to 10mmHg higher than it has been , appx 80-90. have consulted Dr Sullivan for IJ placement for NE and improved venous access. 1800mL fluid restriction (orally), 2g Na diet. 08/18 - DF 51. MELD 27. TAs decreasing, INR and bili up. Kidneys have improved which is the biggest prognostic indicator as yet. Will maintain debbie NE for another 24h - likely until the creatinine normalizes. still getting good fluid from albumin/lasix. Dr Banks recommends 25g lasix infused followed by lasix q12h for now. still watching carefuly I/O - goal is 2L net off. maintain calhoun for accurate I/O. holding on steroids still per Dr Banks recommendations. will give 5mg SQ vit K to ensure no nutritional deficiency at play. will plan to biopsy a month after hospitalization, will have no prognostic value at this point. 08/19 - DF 43, MELD 27. vit K ordered today. Good UOP, creat now down to normal with GFR >60. will DC NE drip and art line. continue albumin and lasix for now. continue alb until it is >3.4. TAs down. bili up, not unexpected. continue exact I/O - maintain calhoun. prognosis poor but has improved overall since yesterday. PROBABLE CHRONIC HCV INFECTION 08/17 - awaiting PCR to quantify presence of active infection 08/18 - labs pending 08/19 - labs pending HYPONATREMIA 08/17 - poor prognostic factor. will watch sodium/fluid balance carefully. goal is to remove 1-2L daily (net). 08/18 - holding steady, will continue lasix diuresis. 08/18 - holding steady, continue lasix for now. likely due to volume overload HYPOALBUMINEMIA 08/17 - replacing at 1 gm/kg. will do much smaller doses tomorrow, if any, depending on pulmonary and/or renal status. 08/18 - improved with albumin yesterday. will do 25g q12h followed by lasix. 08/19 - no change today, goal albumin is 3.4 ACUTE KIDNEY INJURY 2/2 HEPATORENAL SYNDROME LYMPHEDEMA 08/17 - poor prognostic indicator. infusing albumin with cautious lasix doses. The patient is also supramorbidly obese with lymphedema, making it more difficult to tell intravascular volume. again, CVP measurements are important here. 08/18 - improved. will monitor BMP q 12h. 08/19 - much improved today, goal UOP is 0.5ml/kg/h. still a bit down from that but has doubled in past 24-48h. ELEVATED BILIRUBIN HEPATIC ENCEPHALOPATHY 08/17 - poor prognostic indicator. lactulose ordered for goal 2-4 loose BM per day. 08/18 - sensorium improved, continue lactulose for now. 08/19 - will hold lactulose today, decrease doses. she is stooling quite a bit. sensorium clear despite minor elevation in ammonia level. THROMBOCYTOPENIA ELEVATED INR 08/17 - DC'd lovenox, will rely on SCDs for DVT prevention. have also DC'd motrin. 08/18 - platelets improved, still holding on lovenox and other anti-platelet tx d /t elevated INR. pt does appear to be bruising badly c/w clinical state. 08/19 - INR stable which is encouraging UTI 08/17 - cefdinir for UTI. 08/18 - day 4. 08/19 - day 5, doing well, will DC catheter as soon as we can. LEUKOCYTOSIS 08/17 - could be from the alcoholic hepatitis rather than UTI. more likely to be AH rather than infectious as she is already on antibiotics and the WBC are rising. 08/18 - no sign of infection, will continue to monitor. 08/19 - still believe this is related to AH. DEPRESSION 08/17 - pt with significant anxiety. will use very low dose ativan, have asked nurse not to use this unless patient requests for sleep or if she has a florid anxiety attack. I do not want respiratory compromise in this severely ill patient. 08/18 - PRN ativan, have requested it be used cautiously. 08/19 - prn ativan helping her anxiety/depression. zoloft for buttermaker use. ALCOHOLISM 08/17 - will ask Julita Katie form [facility] to visit patient, tell her about our services. 08/19 - again counseled patient that her 2y mortality is extremely high if she were to return to drinking. she is quite adamant that she wants to be done. is willing to talk with our ATS team upon DC. DEBILITY 08/17 - PT/OT ordered. will do what we can while acutely ill in hospital. 08/18 - will ask SW if there is any way she can go to rehab at discharge 08/19 - getting up to chair as often as she can, would like PT/OT to restart their care with her. Have had a very clear discussion with patient, her son and iva regarding her severely ill status. Jacy very much wanted to stay in [place], and Dr Banks has assured me he will be available by phone consult for any additional questions. Should patient or I believe that transfer is necessary, we will arrange. We will continue to monitor the situaiton closely to assure we are doing everything we can for Jacy. 08/18 - overall, clinical sitaution is improved but remains precarious. family and patient aware we are taking things one day at a time. significant mortality associated with alcoholic hepatitis but kidneys improved today which is reassuring. will maintain in ICU and monitor closely for any changes. 08/19 - overall cautious improvement. patient and family informed. will continue to monitor in ICU though we are able to de-escalate some things. family appeared satisfied with her care today. Diagnosis/Problems: Clinical Quality Measures DVT/VTE Risk/Contraindication: Risk Factor Score Per Nursin RFS Level Per Nursing on Admit: 4+=Very High EMERITA ENG MD Aug 19, 2016 10:58
[2016-08-19] MEDS ORDERED: VITAMIN K 1 MG/ML ORAL SOLN 1 ML SYRINGE PO NR (11:00)
[2016-08-19] MEDS: LORazepam 0.5 MG (ATIVAN) TABLET PO PRN ×2 (13:46→21:21)
[2016-08-19 15:39] LABS: HEP C COPIES ML Not Detected (<=11)
[2016-08-19] MEDS: RIFAXIMIN 550 MG TABLET (XIFAXAN) PO SCH ×2 (16:25→20:06)
[2016-08-19] MEDS: SERTRALINE 50 MG (ZOLOFT) TABLET PO SCH (20:06)
[2016-08-19 21:00] LABS: ANION GAP 11 MMOL/L (5-14); BLOOD UREA NITROGEN 20 MG/DL (7-18); BUN/CREATININE RATIO 22; CALCIUM 7.6 MG/DL (8.5-10.1); CARBON DIOXIDE 25 MMOL/L (21-32); CHLORIDE 94 MMOL/L (98-107); CREATININE SERUM 0.93 MG/DL (0.60-1.30); GFR ESTIMATED > 60; GLUCOSE 112 MG/DL (70-105); POTASSIUM 3.6 MMOL/L (3.6-5.0); SODIUM 130 MMOL/L (135-145)
[2016-08-20 05:30] LABS: MEAN CORPUSCULAR HEMOGLOBIN 34 PG (25-34); MEAN CORPUSCULAR HGB CONC 32 G/DL (32-36); MEAN CORPUSCULAR VOLUME 107 FL (80-99); RED BLOOD COUNT 2.61 10^6/uL (4.35-5.85); RED CELL DISTRIBUTION WIDTH 22.4 % (10.0-14.5); WHITE BLOOD COUNT 16.4 10^3/uL (4.3-11.0)
[2016-08-20 05:31] LABS: BASOPHILS # (AUTO) 0.3 10^3/uL (0.0-0.1); BASOPHILS % (AUTO) 2 % (0-10); EOSINOPHILS # (AUTO) 0.1 10^3/uL (0.0-0.3); EOSINOPHILS % (AUTO) 1 % (0-10); LYMPHOCYTES # (AUTO) 2.8 X 10^3 (1.0-4.0); LYMPHOCYTES % (AUTO) 17 % (12-44); MEAN PLATELET VOLUME 10.1 FL (7.4-10.4); MONOCYTES # (AUTO) 2.3 X 10^3 (0.0-1.0); MONOCYTES % (AUTO) 14 % (0-12); NEUTROPHILS # (AUTO) 10.9 X 10^3 (1.8-7.8); NEUTROPHILS % (AUTO) 67 % (42-75); PLATELET COUNT 216 10^3/uL (130-400)
[2016-08-20 05:46] LABS: INR 1.7 (0.8-1.4); PROTHROMBIN TIME PATIENT 19.6 SEC (12.2-14.7)
[2016-08-20 05:58] LABS: ALBUMIN 3.2 GM/DL (3.2-4.5); BILIRUBIN,TOTAL 21.8 MG/DL (0.1-1.0); CALCIUM 7.6 MG/DL (8.5-10.1); CREATININE SERUM 1.09 MG/DL (0.60-1.30); MAGNESIUM 1.6 MG/DL (1.8-2.4); PHOSPHORUS 1.3 MG/DL (2.3-4.7); POTASSIUM 3.5 MMOL/L (3.6-5.0); TOTAL PROTEIN 5.8 GM/DL (6.4-8.2)
[2016-08-20] MEDS: POTASSIUM CL 10MEQ/50ML IVPB 50 ML IV SCH (06:15)
[2016-08-20] MEDS: ALBUMIN 25% 25 GM/100 ML 100 ML IV SCH (06:24)
[2016-08-20] MEDS: MAGNESIUM 1 GM/100 ML IVPB 100 ML IV SCH ×3 (06:25→08:12)
[2016-08-20] MEDS: FUROSEMIDE 40 MG (LASIX) TAB PO SCH (06:25)
[2016-08-20] MEDS: MULTIVIT W/MINERALS TAB (THERAGRAN M) PO SCH (06:25)
[2016-08-20] MEDS: KCL 20 MEQ TAB (K-DUR) PO SCH (06:25)
[2016-08-20] MEDS ORDERED: KCL 20 MEQ TAB (K-DUR) PO ONE (06:30)
[2016-08-20 07:11] LABS: HEPATITIS C LOG ML Not Detected (Not Detected)
[2016-08-20 09:00] VITALS: BP 108/56
--- NOTE | 2016-08-20 09:03 | Diagnostic Imaging Report ---
Portable upright radiograph of the chest. INDICATION: Dyspnea. Mild hepatic encephalitis. FINDINGS: The heart size is moderately enlarged. There is pulmonary vascular congestion and interstitial pulmonary edema. This is worsened compared to prior exam of 08/19/16. There is underpenetration of the lower lobes and soft tissue superimposition with no definitive airspace opacity. No effusion or pneumothorax is evident. The mediastinum and clinton appear unremarkable. Right internal jugular line is seen. IMPRESSION: Findings suggestive of interstitial pulmonary edema. Dictated by: Dictated on workstation # [id number]
[2016-08-20] MEDS: FOLIC ACID 1 MG TAB PO SCH (09:48)
[2016-08-20] MEDS: CEFDINIR 300 MG (OMNICEF) CAP PO SCH ×2 (09:48→20:27)
[2016-08-20] MEDS: RIFAXIMIN 550 MG TABLET (XIFAXAN) PO SCH ×2 (09:48→20:27)
[2016-08-20] MEDS: MICONAZOLE 2% POWDER (DESENEX AF) 90 GM TOP SCH ×2 (09:48→20:28)
[2016-08-20 10:00] VITALS: BP 91/53
[2016-08-20 11:00] VITALS: BP 122/58
[2016-08-20] MEDS: SODIUM PHOSPHATE INJ 30 MM in NS (IVPB) 250 ML IV SCH ×2 (12:54→18:00)
[2016-08-20 14:25] VITALS: BP 127/73
--- NOTE | 2016-08-20 14:46 | Progress Note (SOAP) ---
Subjective Subjective/Events-last exam Having back pain, no abd pain, no fevers overnight. UOP has dropped off significantly. Review of Systems Date Seen by Provider: Aug 20, 2016 Time Seen by Provider: 08:30 Pulmonary: No Dyspnea, No Cough Objective Exam Last Set of Vital Signs Vital Signs Date Time Temp Pulse Resp B/P (MAP) Pulse Ox O2 Delivery O2 Flow Rate FiO2 08/20/16 13:00 93 08/20/16 12:00 98.7 99 Nasal Cannula 2.00 08/20/16 06:00 15 Capillary Refill : Less Than 3 SecondsLess Than 3 Seconds I&O Intake and Output 08/20/16 00:00 Intake Total 2540 ml Output Total 1705 ml Balance 835 ml Intake Oral 1840 ml IV Total 700 ml Output Urine Total 1705 ml # Bowel Movements 7 General: Alert, Oriented X3, Cooperative, No Acute Distress Neck: Supple, No JVD Lungs: Clear to Auscultation, Normal Air Movement Heart: Regular Rate, Normal S1, Normal S2, No Murmurs, Gallops, Rubs Abdomen: Normal Bowel Sounds, Soft, No Tenderness Extremities: No Clubbing, No Cyanosis, No Edema (trace) Psych/Mental Status: Mental Status NL, Mood NL Results/Procedures Lab Laboratory Tests 08/19/16 20:10: Sodium Level 130L, Potassium Level 3.6, Chloride Level 94L, Carbon Dioxide Level 25, Anion Gap 11, Blood Urea Nitrogen 20H, Creatinine 0.93, Estimat Glomerular Filtration Rate > 60, BUN/Creatinine Ratio 22, Glucose Level 112H, Calcium Level 7.6L 08/19/16 20:15: Glucometer 119H 08/20/16 05:26: Sodium Level 128L, Potassium Level 3.5L, Chloride Level 93L, Carbon Dioxide Level 20L, Anion Gap 15H, Blood Urea Nitrogen 22H, Creatinine 1.09, Estimat Glomerular Filtration Rate 52, BUN/Creatinine Ratio 20, Glucose Level 109H, Calcium Level 7.6L, White Blood Count 16.4H, Red Blood Count 2.61L, Hemoglobin 8.8L, Hematocrit 28L, Mean Corpuscular Volume 107H, Mean Corpuscular Hemoglobin 34, Mean Corpuscular Hemoglobin Concent 32, Red Cell Distribution Width 22.4H, Platelet Count 216, Mean Platelet Volume 10.1, Neutrophils (%) (Auto) 67, Lymphocytes (%) (Auto) 17, Monocytes (%) (Auto) 14H, Eosinophils (%) (Auto) 1, Basophils (%) (Auto) 2, Neutrophils # (Auto) 10.9H, Lymphocytes # (Auto) 2.8, Monocytes # (Auto) 2.3H, Eosinophils # (Auto) 0.1, Basophils # (Auto) 0.3H, Prothrombin Time 19.6H, INR Comment 1.7H, Phosphorus Level 1.3L, Magnesium Level 1.6L, Total Bilirubin 21.8H, Aspartate Amino Transf (AST/SGOT) 178H, Alanine Aminotransferase (ALT/SGPT) 52, Alkaline Phosphatase 299H, Ammonia 60H, Total Protein 5.8L, Albumin 3.2, Smear Scan YES Microbiology 08/15/16 Urine Culture - Final, Complete Escherichia Coli Non-Enterococcus Group D Strep Radiology CXR 08/14: DRAFT IMPRESSION: Allowing for the shallow degree of inspiration, there is no evidence for an acute cardiopulmonary abnormality. 08/16: Abdominal US: Overall obscured imaging. Hepatomegally noted. No ascites identified. IMPRESSION: 1. Overall, abdominal sonogram is heavily obscured secondary to patient body habitus and poor acoustic windows. 2. Hepatomegaly with hepatic steatosis. Hepatic steatosis also heavily obscured as underlying hepatic parenchymal. 3. Portal vein is obscured, but does appear to show hepatopetal flow. 4. Splenic vein suboptimally visualized. Assessment/Plan Assessment/Plan Admission Dx 08/15-08/16 1. Suspect hepatic encephalopathy 2. Suspect chronic hepatitis C 3. Transaminitis/hyperbilirubinemia 4. UTI 5. Hyponatremia 6. Leukocytosis 7. Macrocytic anemia 8. Thrombocytopenia 9. Excessive alcohol use Plan ALCOHOLIC HEPATITIS 08/17 - Discriminant Function 35 today. Meld 32. Spoke with Dr Jeni Banks at regarding severity of issues. Will hold on steroids as they are not always beneficial, and she does have the hepatitis C. We will do a low-dose norepinephrine drip to help mobilize fluids. In addition, have ordered 1mg/kg of albumin to be slowly infused over 4h. Will then give lasix behind it. Calhoun cath placed to improved accuracy of I/O. Have consulted anesthesia for art line - goal for NE drip is to increase MAP to 10mmHg higher than it has been , appx 80-90. have consulted Dr Sullivan for IJ placement for NE and improved venous access. 1800mL fluid restriction (orally), 2g Na diet. 08/18 - DF 51. MELD 27. TAs decreasing, INR and bili up. Kidneys have improved which is the biggest prognostic indicator as yet. Will maintain debbie NE for another 24h - likely until the creatinine normalizes. still getting good fluid from albumin/lasix. Dr Banks recommends 25g lasix infused followed by lasix q12h for now. still watching carefuly I/O - goal is 2L net off. maintain calhoun for accurate I/O. holding on steroids still per Dr Banks recommendations. will give 5mg SQ vit K to ensure no nutritional deficiency at play. will plan to biopsy a month after hospitalization, will have no prognostic value at this point. 08/19 - DF 43, MELD 27. vit K ordered today. Good UOP, creat now down to normal with GFR >60. will DC NE drip and art line. continue albumin and lasix for now. continue alb until it is >3.4. TAs down. bili up, not unexpected. continue exact I/O - maintain calhoun. prognosis poor but has improved overall since yesterday. 08/20 - spoke with Dr Banks again today. Will DC albumin and lasix as she is now likely euvolemic. will move to floor. DC calhoun. maintain fluid restriction. PROBABLE CHRONIC HCV INFECTION 08/17 - awaiting PCR to quantify presence of active infection 08/18 - labs pending 08/19 - labs pending 08/20 - pt informed that no HCV DNA detected HYPONATREMIA 08/17 - poor prognostic factor. will watch sodium/fluid balance carefully. goal is to remove 1-2L daily (net). 08/18 - holding steady, will continue lasix diuresis. 08/18 - holding steady, continue lasix for now. likely due to volume overload HYPOALBUMINEMIA 08/17 - replacing at 1 gm/kg. will do much smaller doses tomorrow, if any, depending on pulmonary and/or renal status. 08/18 - improved with albumin yesterday. will do 25g q12h followed by lasix. 08/19 - no change today, goal albumin is 3.4 08/20 - up a bit more today, will DC albumin infusions ACUTE KIDNEY INJURY 2/2 HEPATORENAL SYNDROME LYMPHEDEMA 08/17 - poor prognostic indicator. infusing albumin with cautious lasix doses. The patient is also supramorbidly obese with lymphedema, making it more difficult to tell intravascular volume. again, CVP measurements are important here. 08/18 - improved. will monitor BMP q 12h. 08/19 - much improved today, goal UOP is 0.5ml/kg/h. still a bit down from that but has doubled in past 24-48h. 08/20 - will arrange lymphedema wraps. GFR holding in 50s. DC lasix as well. ELEVATED BILIRUBIN HEPATIC ENCEPHALOPATHY 08/17 - poor prognostic indicator. lactulose ordered for goal 2-4 loose BM per day. 08/18 - sensorium improved, continue lactulose for now. 08/19 - will hold lactulose today, decrease doses. she is stooling quite a bit. sensorium clear despite minor elevation in ammonia level. 08/20 - stop checking ammonia per Dr Banks, he agrees with rifaxamin due to recent history of HE and florid diarrhea while on lactulose. THROMBOCYTOPENIA ELEVATED INR 08/17 - DC'd lovenox, will rely on SCDs for DVT prevention. have also DC'd motrin. 08/18 - platelets improved, still holding on lovenox and other anti-platelet tx d /t elevated INR. pt does appear to be bruising badly c/w clinical state. 08/19 - INR stable which is encouraging 08/20 - INR stable, platelets up. no changes today. UTI 08/17 - cefdinir for UTI. 08/18 - day 4. 08/19 - day 5, doing well, will DC catheter as soon as we can. 08/20 - DC tomorrow, no acute issues LEUKOCYTOSIS 08/17 - could be from the alcoholic hepatitis rather than UTI. more likely to be AH rather than infectious as she is already on antibiotics and the WBC are rising. 08/18 - no sign of infection, will continue to monitor. 08/19 - still believe this is related to AH. 08/20 - stable DEPRESSION 08/17 - pt with significant anxiety. will use very low dose ativan, have asked nurse not to use this unless patient requests for sleep or if she has a florid anxiety attack. I do not want respiratory compromise in this severely ill patient. 08/18 - PRN ativan, have requested it be used cautiously. 08/19 - prn ativan helping her anxiety/depression. zoloft for correction use. 08/20 - drop ativan to q12h, do not anticipate needing/using this as outpatient. ALCOHOLISM 08/17 - will ask Julita Wilson form [facility] to visit patient, tell her about our services. 08/19 - again counseled patient that her 2y mortality is extremely high if she were to return to drinking. she is quite adamant that she wants to be done. is willing to talk with our ATS team upon DC. DEBILITY 08/17 - PT/OT ordered. will do what we can while acutely ill in hospital. 08/18 - will ask SW if there is any way she can go to rehab at discharge 08/19 - getting up to chair as often as she can, would like PT/OT to restart their care with her. 08/20 - pt wanting to go to inpatient rehab, will consult for evaluation. Have had a very clear discussion with patient, her son and dufedericahter regarding her severely ill status. Jacy very much wanted to stay in [place], and Dr Banks has assured me he will be available by phone consult for any additional questions. Should patient or I believe that transfer is necessary, we will arrange. We will continue to monitor the situaiton closely to assure we are doing everything we can for Jacy. 08/18 - overall, clinical sitaution is improved but remains precarious. family and patient aware we are taking things one day at a time. significant mortality associated with alcoholic hepatitis but kidneys improved today which is reassuring. will maintain in ICU and monitor closely for any changes. 08/19 - overall cautious improvement. patient and family informed. will continue to monitor in ICU though we are able to de-escalate some things. family appeared satisfied with her care today. 08/20 - pt improving steadily. will start thinking/planning toward discharge. would like to see her in rehab as this would optimize her strength before going home. Diagnosis/Problems: Clinical Quality Measures DVT/VTE Risk/Contraindication: Risk Factor Score Per Nursin RFS Level Per Nursing on Admit: 4+=Very High EMERITA ENG MD Aug 20, 2016 2:46 pm
[2016-08-20 15:00] VITALS: BP 124/62
--- NOTE | 2016-08-20 15:42 | Physical Therapy Progress Note ---
Therapy Progress Note Patient declined PT this p.m. due to extreme fatigue. PT to evaluate in a.m. 1 visit ref SIS VELÁSQUEZ PT Aug 20, 2016 15:42
--- NOTE | 2016-08-20 16:56 | Occupational Therapy Eval ---
OT Evaluation-General/PLF Medical Diagnosis Admission Date Aug 17, 2016 at 11:38 Medical Diagnosis: hepatic encephalopathy Onset Date: Aug 14, 2016 Therapy Diagnosis Therapy Diagnosis: decr self care, decr funct mobility, decr activity tolerance , weakness Height/Weight Height (Feet): 5 Height (Inches): 1.00 Weight (Pounds): 424 Weight (Ounces): 3.0 Precautions Precautions/Isolations: Fall Prevention, Standard Precautions Safety Interventions: None Referral Physician: Raheem Referral Reason: Evaluation/Treatment Medical History Pertinent Medical History: Alcoholism, Arthritis, HTN Additional Medical History Hep C, anxiety, depression, cervical cancer, panic attacks, excessive alcohol use Current History Hepatic encephalopathy, fluid overload, debility, acute on chronic alcoholic liver disease, UTI. End stage liver failure. SOB for 3-6 months and skin is yellow Social History Home: Apartment Current Living Status: Alone Entry Into Home: Stairs With Railing Steps Into Home: 20 ADL-Prior Level of Function ADL PLOF Comments Pt was able to walk independently prior to admission, per PT evaluation DME/Equipment Comments Unknown safety equipment OT Current Status Subjective Pt seen in room, up in bed, agreeable to OT. Had just been transferred to regular floor from ICU. pain 0/10 Appearance Alert, cooperative but sleepy Mental Status/Objective Patient Orientation: Person, Place Attachments: Central Line, Oxygen Current Glasses/Contacts: Yes Hearing Aids: No Dentures/Partials: No Upper Extremity ROM Grossly WFL bilat except for edema L hand/UE Upper Extremity Strength Grossly 4/5 bilat Edema: Significant edema L hand and arm, bilat LEs ADL-Treatment ADL-Current Isotoner glove fitted on L hand and sterling wrap applied modified figure of 8 to L arm to elbow. Sterling wraps applied to bilat LEs to knees in modified figure of 8 wrap. Difficult to wrap legs securely due to skin folds and shape of her legs and forearm. Pt's daughter assisted with wrapping and verbalized understanding of how to reposition them if they fall down. Functional Real Measure 0=Not Assessed/NA 4=Minimal Assistance 1=Total Assistance 5=Supervision or Setup 2=Maximal Assistance 6=Modified Real 3=Moderate Assistance 7=Complete IndependenceIRFPAI Quality Coding Scale 6 Independent with activity with or without an assistive device 5 Patient requires set up or clean up by helper. Patient completes activity by themselves 4 Supervision or touching assist (CGA). [place] provide cues , steadying assist 3 The helper provides less than half the effort to complete the activity 2 The helper provides more than half the effort to complete the activity 1 Dependent. The helper does all the effort to complete an activity 7 Patient refused to complete or attempt activity 9 The patient did not perform the activity before the current illness or injury 88 Not attempted due to Medical conditions or safety concerns Other ADLs not tested due to pt fatigue. Suggested BSC to her and she declined, wanting to use regular taller toilet instead. She thinks she will be able to walk to the bathroom with daughter's help later. Nursing education on glove and wraps Education OT Patient Education: Modified ADL techniques, Purpose of tx/functional activities, Rehab process, Transfer techniques, Use of adapted equipment Teaching Recipient: Patient, Family Teaching Methods: Discussion Response to Teaching: Verbalize Understanding OT Software Application Tester Goals Long-Term Goals Time Frame: Aug 28, 2016 Maximize independence in basic self care, decrease edema in L UE and LEs to allow her to manage ADLs Additional Goals: 2-Verbalize Understanding, 3-ImproveStrength/Braden 1=Demonstrate adherence to instructed precautions during ADL tasks. 2=Patient will verbalize/demonstrate understanding of assistive devices/ modifications for ADL. 3=Patient will improve strength/tolerance for activity to enable patient to perform ADL's. OT Education/Plan Problem List/Assessment Assessment: Decreased Activ Tolerance, Dependent Transfers, Impaired Bed Mobility, Impaired Self-Care Skills Pt would benefit from skilled OT to increase her independence in basic self care to allow her to safely return to her home to live alone. Discharge Recommendations Plan/Recommendations: Continue POC Treatment Plan/Plan of Care Treatment,Training & Education: Yes Patient would benefit from OT for education, treatment and training to promote independence in ADL's, mobility, safety and/or upper extremity function for ADL' s. Plan of Care: ADL Retraining, Functional Mobility, UE Funct Exercise/Act Treatment Duration: Aug 28, 2016 Frequency: Daily Estimated Hrs Per Day: .5 hour per day (or more) Agreement: Yes Rehab Potential: Fair Time/GCodes Start Time: 15:20 Stop Time: 16:00 Total Time Billed (hr/min): 40 Billed Treatment Time visit, evaluation moderate intensity 10 minutes, ADL 30 minutes HAROON MANRIQUEZ OT Aug 20, 2016 16:56
[2016-08-20] MEDS: LORazepam 0.5 MG (ATIVAN) TABLET PO PRN (17:35)
[2016-08-20] MEDS ORDERED: FAMOTIDINE 20 MG (PEPCID) TABLET PO NR (18:00)
[2016-08-20] MEDS: FAMOTIDINE 20 MG (PEPCID) TABLET PO SCH (20:27)
[2016-08-20] MEDS: SERTRALINE 50 MG (ZOLOFT) TABLET PO SCH (20:27)
[2016-08-20 21:05] LABS: CALCIUM 7.8 MG/DL (8.5-10.1); CREATININE SERUM 1.3 MG/DL (0.60-1.30); POTASSIUM 3.7 MMOL/L (3.6-5.0)
[2016-08-21 00:30] VITALS: BP 135/61
[2016-08-21] MEDS: LORazepam 0.5 MG (ATIVAN) TABLET PO PRN ×2 (01:48→13:04)
[2016-08-21 04:30] VITALS: BP 123/58
[2016-08-21] MEDS: MULTIVIT W/MINERALS TAB (THERAGRAN M) PO SCH (06:50)
[2016-08-21 07:16] LABS: BASOPHILS # (AUTO) 0.2 10^3/uL (0.0-0.1); BASOPHILS % (AUTO) 1 % (0-10); EOSINOPHILS # (AUTO) 0.1 10^3/uL (0.0-0.3); EOSINOPHILS % (AUTO) 1 % (0-10); LYMPHOCYTES # (AUTO) 2.1 X 10^3 (1.0-4.0); LYMPHOCYTES % (AUTO) 14 % (12-44); MEAN CORPUSCULAR HEMOGLOBIN 34 PG (25-34); MEAN CORPUSCULAR HGB CONC 32 G/DL (32-36); MEAN CORPUSCULAR VOLUME 106 FL (80-99); MEAN PLATELET VOLUME 10.1 FL (7.4-10.4); MONOCYTES # (AUTO) 1.8 X 10^3 (0.0-1.0); MONOCYTES % (AUTO) 12 % (0-12); NEUTROPHILS # (AUTO) 10.7 X 10^3 (1.8-7.8); NEUTROPHILS % (AUTO) 72 % (42-75); PLATELET COUNT 225 10^3/uL (130-400); RED BLOOD COUNT 2.64 10^6/uL (4.35-5.85); RED CELL DISTRIBUTION WIDTH 22.2 % (10.0-14.5); WHITE BLOOD COUNT 14.9 10^3/uL (4.3-11.0)
[2016-08-21 07:27] LABS: INR 1.7 (0.8-1.4); PROTHROMBIN TIME PATIENT 19.7 SEC (12.2-14.7)
[2016-08-21 07:35] LABS: MAGNESIUM 1.9 MG/DL (1.8-2.4); PHOSPHORUS 3.4 MG/DL (2.3-4.7)
[2016-08-21 07:39] LABS: ALBUMIN 3.2 GM/DL (3.2-4.5); BILIRUBIN,TOTAL 24.7 MG/DL (0.1-1.0); CALCIUM 7.6 MG/DL (8.5-10.1); CREATININE SERUM 1.42 MG/DL (0.60-1.30); POTASSIUM 3.5 MMOL/L (3.6-5.0); TOTAL PROTEIN 5.6 GM/DL (6.4-8.2)
[2016-08-21 08:03] LABS: NEUTROPHILS % (MANUAL) 65 %
[2016-08-21 08:04] LABS: ANISOCYTOSIS MARKED; BAND NEUTROPHILS 4 %; BASOPHILS % (MANUAL) 0 %; EOSINOPHILS % (MANUAL) 1 %; HYPOCHROMASIA SLIGHT; LYMPHOCYTES % (MANUAL) 16 %; METAMYELOCYTES % 5 %; MYELOCYTES % 1 %; POLYCHROMASIA MODERATE; TARGET CELLS SLIGHT
[2016-08-21 08:30] VITALS: BP 134/60
[2016-08-21] MEDS: RIFAXIMIN 550 MG TABLET (XIFAXAN) PO SCH ×2 (08:36→20:00)
[2016-08-21] MEDS: FOLIC ACID 1 MG TAB PO SCH (08:36)
[2016-08-21] MEDS: FAMOTIDINE 20 MG (PEPCID) TABLET PO SCH ×2 (08:36→20:00)
[2016-08-21] MEDS: CEFDINIR 300 MG (OMNICEF) CAP PO SCH ×2 (08:36→20:00)
[2016-08-21] MEDS: MICONAZOLE 2% POWDER (DESENEX AF) 90 GM TOP SCH ×2 (08:37→20:01)
[2016-08-21] MEDS ORDERED: CATHETER FLUSH 10 ML SYR IV PRN (11:00)
[2016-08-21] MEDS: NS IV 1000 ML 1,000 ML IV SCH ×2 (11:17→21:23)
--- NOTE | 2016-08-21 12:05 | Physical Therapy Evaluation ---
PT Evaluation-General Medical Diagnosis Admission Date Aug 17, 2016 at 11:38 Medical Diagnosis: hepatic encephalopathy Onset Date: Aug 14, 2016 Therapy Diagnosis Therapy Diagnosis: debility/weakness Height/Weight Height (Feet): 5 Height (Inches): 1.00 Weight (Pounds): 431 Weight (Ounces): 0.0 Precautions Precautions/Isolations: Fall Prevention Referral Physician: Raheem Reason for Referral: Evaluation/Treatment Medical History Pertinent Medical History: Alcoholism, Arthritis, HTN Additional Medical History kidney and liver failure Current History Hep C; weakness Reviewed History: Yes Social History Home: Apartment Current Living Status: Alone Entry Into Home: Stairs With Railing PT Steps Into Home: 20 Prior/Core FIM Prior Level of Function Functional [place] Measure 0=Not Assessed/NA 4=Minimal Assistance 1=Total Assistance 5=Supervision or Setup 2=Maximal Assistance 6=Modified [place] 3=Moderate Assistance 7=Complete [place] Bed Mobility: 7 Transfers (B,C,W/C) (FIM): 7 Gait: 7 PT Evaluation-Current Subjective Patient agrees to PT. Patient states she is very fatigued. Pain Numeric Pain Scale: 0-No Pain Location: No Pain Reported Objective Patient Orientation: Normal For Age Problem Solving: Fair ROM/Strength ROM Lower Extremities limited ROM bilaterally due to edema and obesity Strenght Lower Extremities 4/5 grossly bilateral LE Integumentary/Posture Integumentary refer to nursing notes Bowel Incontinence: No Bladder Incontinence: No Posture WNL Neuromuscular (Tone, Coordination, Reflexes) diminished coordination due to inactivity and obesity; WBOS with ambulation Sensory Vision: Wears Glasses Hearing: Functional Sensation Right Lower Extremit: Intact Sensation Left Lower Extremity: Intact Transfers Functional [place] Measure 0=Not Assessed/NA 4=Minimal Assistance 1=Total Assistance 5=Supervision or Setup 2=Maximal Assistance 6=Modified [place] 3=Moderate Assistance 7=Complete [place] Transfers (B, C, W/C) (FIM): 4 Scootin Rollin Supine to/from Sit: 5 Sit to/from Stand: 4 Gait Mode of Locomotion: Walk Anticipated Mode of Locomotion: Walk Gait (FIM): 1 Distance (FIM): 1=up to 49 ft Distance: 30' x 2 Gait Level of Assist: 5 Gait Persons Needed: 1 Gait Assistive Device: None Comments/Gait Description WBOS gait sequence due to obesity and limited pulmonary endurance; patient refused to use FWW for mobility Balance Sitting Static: Normal Sitting Dynamic: Normal Standing Static: Fair Standing Dynamic: Fair Assessment/Needs 56 y.o. female, will benefit from skilled PT to address functional strength and mobility to improve current LOF and to safely return to home with family at maximum LOF. Patient displays limited cardiopulmonary function and requires much time to recover to continue with gross motor tasks. consulted with POC and will determine POC next week. Rehab Potential: Poor Post Rehab Potential-Barriers: liver failure PT Grade Teacher Goals Grade Teacher Goals PT Snf Goals Time Frame: Sep 11, 2016 Transfers (B,C,W/C) (FIM): 6 Gait (FIM): 2 Gait distance (FIM): 1=060-37 ft Distance: 100' Gait Level of Assist: 5 Gait Assistive Device: None, FWW Stairs (FIM): 2 # of Steps: 4 Stairs Level Of Assist: 5 PT Plan Problem List Problem List: Activity Tolerance, Functional Strength, Gait, ROM Treatment/Plan Treatment Plan: Continue Plan of Care Treatment Plan: Bed Mobility, Education, Functional Activity Braden, Functional Strength, Gait, Safety, Therapeutic Exercise, Transfers Treatment Duration: Sep 11, 2016 Frequency: 6 times per week Estimated Hrs Per Day: .5 hour per day (or PRN) Patient and/or Family Agrees t: Yes Safety Risks/Education Patient Education: Gait Training, Safety Issues Teaching Recipient: Patient Teaching Methods: Demonstration, Discussion Response to Teaching: Verbalize Understanding, Return Demonstration Discharge Recommendations Therapy D/C Recommendations: Home w/ Family Support, Physical Therapy Home Care , Assisted Placement, Assisted (TCU/NH) Time/GCodes Time In: 1115 Time Out: 1130 Total Billed Treatment Time: 15 Total Billed Treatment 1 visit [facility] 15 min SIS VELÁSQUEZ PT Aug 21, 2016 12:04
[2016-08-21 12:51] VITALS: BP 142/66
--- NOTE | 2016-08-21 15:27 | Occupational Ther Daily Note ---
OT Current Status-Daily Note Subjective Pt seen in room, in bed, agreeable to OT. No pain mentioned Appearance Alert, impulsive Mental Status/Objective Functional [place] Measure 0=Not Assessed/NA 4=Minimal Assistance 1=Total Assistance 5=Supervision or Setup 2=Maximal Assistance 6=Modified [place] 3=Moderate Assistance 7=Complete [place] ADL-Treatment Edema has decreased in L hand and bilat LEs. Sterling wraps were off, apparently per pt request. Pt requested help to go to the bathroom. She rolled on to her abdomen, swung legs over the edge and backed off bed to stand on the floor. She impulsively walked to the bathroom, refusing to use her FWW. She was able to get on tall toilet, using grab bars, without help. Pt had difficulty placing herself on toilet and urine spilled on the floor. She was not able to wipe herself after BM (no clothing to manage). Impulsively walked to recliner in room , without FWW and required time to recover. Care transferred to PT. Education OT Patient Education: Safety issues, Transfer techniques Teaching Recipient: Patient Teaching Methods: Discussion Response to Teaching: Verbalize Understanding, Reinforcement Needed OT Short Term Goals Short Term Goals 1=Demonstrate adherence to instructed precautions during ADL tasks. 2=Patient will verbalize/demonstrate understanding of assistive devices/ modifications for ADL. 3=Patient will improve strength/tolerance for activity to enable patient to perform ADL's. OT Jail Goals Jail Goals Time Frame: Aug 28, 2016 Maximize independence in basic self care, decrease edema in L UE and LEs to allow her to manage ADLs Additional Goals: 2-Verbalize Understanding, 3-ImproveStrength/Braden 1=Demonstrate adherence to instructed precautions during ADL tasks. 2=Patient will verbalize/demonstrate understanding of assistive devices/ modifications for ADL. 3=Patient will improve strength/tolerance for activity to enable patient to perform ADL's. OT Education/Plan Problem List/Assessment Pt would benefit from skilled OT to increase her independence in basic self care to allow her to safely return to her home to live alone. Discharge Recommendations Plan/Recommendations: Continue POC Treatment Plan/Plan of Care Patient would benefit from OT for education, treatment and training to promote independence in ADL's, mobility, safety and/or upper extremity function for ADL' s. Plan of Care: ADL Retraining, Functional Mobility, UE Funct Exercise/Act Treatment Duration: Aug 28, 2016 Frequency: Daily Estimated Hrs Per Day: .5 hour per day (or more) Agreement: Yes Rehab Potential: Poor Time/GCodes Start Time: 11:02 Stop Time: 11:15 Total Time Billed (hr/min): 13 Billed Treatment Time visit, 13 minutes ADL HAROON MANRIQUEZ OT Aug 21, 2016 15:27
[2016-08-21 17:00] VITALS: BP 119/57
[2016-08-21] MEDS: SERTRALINE 50 MG (ZOLOFT) TABLET PO SCH (20:00)
--- NOTE | 2016-08-21 20:54 | Progress Note (SOAP) ---
Subjective Subjective/Events-last exam Pt has started moving around her room with minimal assistance. edema in hands, legs improved with the wraps from OT placed yesterday Review of Systems Date Seen by Provider: Aug 21, 2016 Time Seen by Provider: 11:00 Pulmonary: No Dyspnea, No Cough Objective Exam Last Set of Vital Signs Vital Signs Date Time Temp Pulse Resp B/P (MAP) Pulse Ox O2 Delivery O2 Flow Rate FiO2 08/21/16 20:21 Room Air 08/21/16 17:00 97.2 91 24 119/57 92 2.00 Capillary Refill : Less Than 3 SecondsLess Than 3 Seconds I&O Intake and Output 08/21/16 00:00 Intake Total 2440 ml Output Total 395 ml Balance 2045 ml Intake Oral 2140 ml IV Total 300 ml Output Urine Total 395 ml # Voids 2 # Bowel Movements 2 # Emeses 1 General: Alert, Oriented X3, Cooperative, No Acute Distress Lungs: Clear to Auscultation, Normal Air Movement Heart: Regular Rate, Normal S1, Normal S2, No Murmurs, Gallops, Rubs Abdomen: Normal Bowel Sounds, Soft, No Tenderness Extremities: No Clubbing, No Cyanosis, No Edema (trace) Neuro: Normal Speech Psych/Mental Status: Mental Status NL, Mood NL Results/Procedures Lab Laboratory Tests 08/21/16 06:50: White Blood Count 14.9H, Red Blood Count 2.64L, Hemoglobin 8.9L, Hematocrit 28L , Mean Corpuscular Volume 106H, Mean Corpuscular Hemoglobin 34, Mean Corpuscular Hemoglobin Concent 32, Red Cell Distribution Width 22.2H, Platelet Count 225, Mean Platelet Volume 10.1, Neutrophils (%) (Auto) 72, Lymphocytes (% ) (Auto) 14, Monocytes (%) (Auto) 12, Eosinophils (%) (Auto) 1, Basophils (%) ( Auto) 1, Neutrophils # (Auto) 10.7H, Lymphocytes # (Auto) 2.1, Monocytes # (Auto ) 1.8H, Eosinophils # (Auto) 0.1, Basophils # (Auto) 0.2H, Neutrophils % (Manual ) 65, Lymphocytes % (Manual) 16, Monocytes % (Manual) 8, Eosinophils % (Manual) 1, Basophils % (Manual) 0, Metamyelocytes % 5, Myelocytes % 1, Band Neutrophils 4, Nucleated Red Blood Cells 3, Polychromasia MODERATE, Hypochromasia SLIGHT, Basophilic Stippling MODERATE, Anisocytosis MARKED, Macrocytosis MODERATE, Target Cells SLIGHT, Prothrombin Time 19.7H, INR Comment 1.7H, Sodium Level 129L , Potassium Level 3.5L, Chloride Level 94L, Carbon Dioxide Level 22, Anion Gap 13, Blood Urea Nitrogen 26H, Creatinine 1.42H, Estimat Glomerular Filtration Rate 39, BUN/Creatinine Ratio 18, Glucose Level 103, Calcium Level 7.6L, Phosphorus Level 3.4, Magnesium Level 1.9, Total Bilirubin 24.7H, Aspartate Amino Transf (AST/SGOT) 176H, Alanine Aminotransferase (ALT/SGPT) 53, Alkaline Phosphatase 305H, Total Protein 5.6L, Albumin 3.2 Microbiology 08/15/16 Urine Culture - Final, Complete Escherichia Coli Non-Enterococcus Group D Strep Radiology CXR 08/14: DRAFT IMPRESSION: Allowing for the shallow degree of inspiration, there is no evidence for an acute cardiopulmonary abnormality. 08/16: Abdominal US: Overall obscured imaging. Hepatomegally noted. No ascites identified. IMPRESSION: 1. Overall, abdominal sonogram is heavily obscured secondary to patient body habitus and poor acoustic windows. 2. Hepatomegaly with hepatic steatosis. Hepatic steatosis also heavily obscured as underlying hepatic parenchymal. 3. Portal vein is obscured, but does appear to show hepatopetal flow. 4. Splenic vein suboptimally visualized. Assessment/Plan Assessment/Plan Admission Dx 08/15-08/16 1. Suspect hepatic encephalopathy 2. Suspect chronic hepatitis C 3. Transaminitis/hyperbilirubinemia 4. UTI 5. Hyponatremia 6. Leukocytosis 7. Macrocytic anemia 8. Thrombocytopenia 9. Excessive alcohol use Plan ALCOHOLIC HEPATITIS 08/17 - Discriminant Function 35 today. Meld 32. Spoke with Dr Jeni Banks at regarding severity of issues. Will hold on steroids as they are not always beneficial, and she does have the hepatitis C. We will do a low-dose norepinephrine drip to help mobilize fluids. In addition, have ordered 1mg/kg of albumin to be slowly infused over 4h. Will then give lasix behind it. Calhoun cath placed to improved accuracy of I/O. Have consulted anesthesia for art line - goal for NE drip is to increase MAP to 10mmHg higher than it has been , appx 80-90. have consulted Dr Sullivan for IJ placement for NE and improved venous access. 1800mL fluid restriction (orally), 2g Na diet. 08/18 - DF 51. MELD 27. TAs decreasing, INR and bili up. Kidneys have improved which is the biggest prognostic indicator as yet. Will maintain debbie NE for another 24h - likely until the creatinine normalizes. still getting good fluid from albumin/lasix. Dr Banks recommends 25g lasix infused followed by lasix q12h for now. still watching carefuly I/O - goal is 2L net off. maintain calhoun for accurate I/O. holding on steroids still per Dr Banks recommendations. will give 5mg SQ vit K to ensure no nutritional deficiency at play. will plan to biopsy a month after hospitalization, will have no prognostic value at this point. 08/19 - DF 43, MELD 27. vit K ordered today. Good UOP, creat now down to normal with GFR >60. will DC NE drip and art line. continue albumin and lasix for now. continue alb until it is >3.4. TAs down. bili up, not unexpected. continue exact I/O - maintain calhoun. prognosis poor but has improved overall since yesterday. 08/20 - spoke with Dr Banks again today. Will DC albumin and lasix as she is now likely euvolemic. will move to floor. DC calhoun. maintain fluid restriction. 08/21 - labs holding steady despite DC'g albumin lasix. maintain fluid, salt restriction. PROBABLE CHRONIC HCV INFECTION 08/17 - awaiting PCR to quantify presence of active infection 08/18 - labs pending 08/19 - labs pending 08/20 - pt informed that no HCV DNA detected HYPONATREMIA 08/17 - poor prognostic factor. will watch sodium/fluid balance carefully. goal is to remove 1-2L daily (net). 08/18 - holding steady, will continue lasix diuresis. 08/18 - holding steady, continue lasix for now. likely due to volume overload 08/21 - a bit down today, giving saline, expect to increase tomorrow. HYPOALBUMINEMIA 08/17 - replacing at 1 gm/kg. will do much smaller doses tomorrow, if any, depending on pulmonary and/or renal status. 08/18 - improved with albumin yesterday. will do 25g q12h followed by lasix. 08/19 - no change today, goal albumin is 3.4 08/20 - up a bit more today, will DC albumin infusions 08/21 - stable ACUTE KIDNEY INJURY 2/2 HEPATORENAL SYNDROME LYMPHEDEMA 08/17 - poor prognostic indicator. infusing albumin with cautious lasix doses. The patient is also supramorbidly obese with lymphedema, making it more difficult to tell intravascular volume. again, CVP measurements are important here. 08/18 - improved. will monitor BMP q 12h. 08/19 - much improved today, goal UOP is 0.5ml/kg/h. still a bit down from that but has doubled in past 24-48h. 08/20 - will arrange lymphedema wraps. GFR holding in 50s. DC lasix as well. 08/21 - will give 1 L saline over next 10h and recheck BMP in am. ELEVATED BILIRUBIN HEPATIC ENCEPHALOPATHY 08/17 - poor prognostic indicator. lactulose ordered for goal 2-4 loose BM per day. 08/18 - sensorium improved, continue lactulose for now. 08/19 - will hold lactulose today, decrease doses. she is stooling quite a bit. sensorium clear despite minor elevation in ammonia level. 08/20 - stop checking ammonia per Dr Banks, he agrees with rifaxamin due to recent history of HE and florid diarrhea while on lactulose. 08/21 - mentation quite clear THROMBOCYTOPENIA ELEVATED INR 08/17 - DC'd lovenox, will rely on SCDs for DVT prevention. have also DC'd motrin. 08/18 - platelets improved, still holding on lovenox and other anti-platelet tx d /t elevated INR. pt does appear to be bruising badly c/w clinical state. 08/19 - INR stable which is encouraging 08/20 - INR stable, platelets up. no changes today. 08/21 - stable UTI 08/17 - cefdinir for UTI. 08/18 - day 4. 08/19 - day 5, doing well, will DC catheter as soon as we can. 08/20 - DC tomorrow, no acute issues LEUKOCYTOSIS 08/17 - could be from the alcoholic hepatitis rather than UTI. more likely to be AH rather than infectious as she is already on antibiotics and the WBC are rising. 08/18 - no sign of infection, will continue to monitor. 08/19 - still believe this is related to AH. 08/20 - stable 08/21 - improved today DEPRESSION 08/17 - pt with significant anxiety. will use very low dose ativan, have asked nurse not to use this unless patient requests for sleep or if she has a florid anxiety attack. I do not want respiratory compromise in this severely ill patient. 08/18 - PRN ativan, have requested it be used cautiously. 08/19 - prn ativan helping her anxiety/depression. zoloft for ferry terminal supervisor use. 08/20 - drop ativan to q12h, do not anticipate needing/using this as outpatient. ALCOHOLISM 08/17 - will ask Julita Wilson [facility] AT[facility] to visit patient, tell her about our services. 08/19 - again counseled patient that her 2y mortality is extremely high if she were to return to drinking. she is quite adamant that she wants to be done. is willing to talk with our ATS team upon DC. 08/21 - again counseled cessation DEBILITY 08/17 - PT/OT ordered. will do what we can while acutely ill in hospital. 08/18 - will ask SW if there is any way she can go to rehab at discharge 08/19 - getting up to chair as often as she can, would like PT/OT to restart their care with her. 08/20 - pt wanting to go to inpatient rehab, will consult for evaluation. 08/21 - pt not sure she can do 3h. will do PT/OT over the weekend, reassess on Wednesday. Have had a very clear discussion with patient, her son and iva regarding her severely ill status. Jacy very much wanted to stay in [place], and Dr Banks has assured me he will be available by phone consult for any additional questions. Should patient or I believe that transfer is necessary, we will arrange. We will continue to monitor the situaiton closely to assure we are doing everything we can for Louie. 08/18 - overall, clinical sitaution is improved but remains precarious. family and patient aware we are taking things one day at a time. significant mortality associated with alcoholic hepatitis but kidneys improved today which is reassuring. will maintain in ICU and monitor closely for any changes. 08/19 - overall cautious improvement. patient and family informed. will continue to monitor in ICU though we are able to de-escalate some things. family appeared satisfied with her care today. 08/20 - pt improving steadily. will start thinking/planning toward discharge. would like to see her in rehab as this would optimize her strength before going home. Diagnosis/Problems: Clinical Quality Measures DVT/VTE Risk/Contraindication: Risk Factor Score Per Nursin RFS Level Per Nursing on Admit: 4+=Very High EMERITA ENG MD Aug 21, 2016 8:54 pm
[2016-08-21 20:55] VITALS: BP 119/59
[2016-08-22] VITALS: BP 121/70
[2016-08-22] MEDS: LORazepam 0.5 MG (ATIVAN) TABLET PO PRN ×2 (01:19→11:48)
[2016-08-22 04:00] VITALS: BP 120/58
[2016-08-22] MEDS: MULTIVIT W/MINERALS TAB (THERAGRAN M) PO SCH (07:08)
[2016-08-22] MEDS: NS IV 1000 ML 1,000 ML IV SCH ×2 (07:09→09:55)
[2016-08-22 07:26] LABS: BASOPHILS # (AUTO) 0.2 10^3/uL (0.0-0.1); BASOPHILS % (AUTO) 1 % (0-10); EOSINOPHILS # (AUTO) 0.1 10^3/uL (0.0-0.3); EOSINOPHILS % (AUTO) 1 % (0-10); LYMPHOCYTES # (AUTO) 2.2 X 10^3 (1.0-4.0); LYMPHOCYTES % (AUTO) 14 % (12-44); MEAN CORPUSCULAR HEMOGLOBIN 34 PG (25-34); MEAN CORPUSCULAR HGB CONC 32 G/DL (32-36); MEAN CORPUSCULAR VOLUME 106 FL (80-99); MONOCYTES # (AUTO) 1.9 X 10^3 (0.0-1.0); MONOCYTES % (AUTO) 12 % (0-12); NEUTROPHILS # (AUTO) 11.3 X 10^3 (1.8-7.8); NEUTROPHILS % (AUTO) 72 % (42-75); PLATELET COUNT 229 10^3/uL (130-400); RED BLOOD COUNT 2.64 10^6/uL (4.35-5.85); RED CELL DISTRIBUTION WIDTH 22.1 % (10.0-14.5); WHITE BLOOD COUNT 15.6 10^3/uL (4.3-11.0)
[2016-08-22 07:37] LABS: INR 1.8 (0.8-1.4); PROTHROMBIN TIME PATIENT 20.4 SEC (12.2-14.7)
[2016-08-22 07:50] LABS: ALBUMIN 3.1 GM/DL (3.2-4.5); BILIRUBIN,TOTAL 27.8 MG/DL (0.1-1.0); CALCIUM 7.4 MG/DL (8.5-10.1); CREATININE SERUM 1.91 MG/DL (0.60-1.30); POTASSIUM 3.7 MMOL/L (3.6-5.0); TOTAL PROTEIN 5.6 GM/DL (6.4-8.2)
[2016-08-22 07:58] VITALS: BP 118/62
[2016-08-22 08:12] LABS: MAGNESIUM 1.8 MG/DL (1.8-2.4); PHOSPHORUS 3.3 MG/DL (2.3-4.7)
[2016-08-22] MEDS: FOLIC ACID 1 MG TAB PO SCH (08:46)
[2016-08-22] MEDS: FAMOTIDINE 20 MG (PEPCID) TABLET PO SCH (08:47)
[2016-08-22] MEDS: CEFDINIR 300 MG (OMNICEF) CAP PO SCH (08:47)
[2016-08-22] MEDS: RIFAXIMIN 550 MG TABLET (XIFAXAN) PO SCH (08:48)
--- NOTE | 2016-08-22 09:08 | Physical Therapy Daily Note ---
PT Daily Note-Current Subjective Patient is in recliner and states she does not remember ambulating yesterday. Reluctantly agrees to PT. Pain Numeric Pain Scale: 0-No Pain Location: No Pain Reported Mental Status Patient Orientation: Confused Attachments: Oxygen, IV Transfers Functional [place] Measure 0=Not Assessed/NA 4=Minimal Assistance 1=Total Assistance 5=Supervision or Setup 2=Maximal Assistance 6=Modified [place] 3=Moderate Assistance 7=Complete IndependenceIRFPAI Quality Coding Scale 6 Independent with activity with or without an assistive device 5 Patient requires set up or clean up by helper. Patient completes activity by themselves 4 Supervision or touching assist (CGA). Mustang provide cues , steadying assist 3 The helper provides less than half the effort to complete the activity 2 The helper provides more than half the effort to complete the activity 1 Dependent. The helper does all the effort to complete an activity 7 Patient refused to complete or attempt activity 9 The patient did not perform the activity before the current illness or injury 88 Not attempted due to Medical conditions or safety concerns Transfers (B, C, W/C) (FIM): 2 Scootin Rollin Supine to/from Sit: 2 Sit to/from Stand: 5 max assist with bed mobility activity requiring bed to be place in Trendelenburg to assist with up in bed. Gait Training Gait (FIM): 1 Distance (FIM): 1=up to 49 ft Distance: 15' x 2 Gait Level of Assist: 4 Gait Persons Needed: 1 Gait Assistive Device: FWW WBOS; unsteady; increase SOA with minimal activity Assessment Patient appears to be more edematous on this date. Patient is very limited with mobility due to medical status, size and edema total body. PT Custodial Goals Carpenter Assistant Goals PT Carpenter Assistant Goals Time Frame: Sep 11, 2016 Transfers (B,C,W/C) (FIM): 6 Gait (FIM): 2 Gait distance (FIM): 3=337-92 ft Distance: 100' Gait Level of Assist: 5 Gait Assistive Device: None, FWW Stairs (FIM): 2 # of Steps: 4 Stairs Level Of Assist: 5 PT Plan Treatment/Plan Treatment Plan: Continue Plan of Care Treatment Plan: Bed Mobility, Education, Functional Activity Braden, Functional Strength, Gait, Safety, Therapeutic Exercise, Transfers Treatment Duration: Sep 11, 2016 Frequency: 6 times per week Estimated Hrs Per Day: .5 hour per day (or PRN) Patient and/or Family Agrees t: Yes Time/GCodes Time In: 815 Time Out: 838 Total Billed Treatment Time: 23 Total Billed Treatment 1 visit FA x 2 23 min SIS VELÁSQUEZ PT Aug 22, 2016 09:08
[2016-08-22] MEDS: MICONAZOLE 2% POWDER (DESENEX AF) 90 GM TOP SCH (09:56)
--- NOTE | 2016-08-22 10:51 | Occupational Ther Daily Note ---
OT Current Status-Daily Note Subjective Pt seen in room, in bed, eyes closed but easily awakened. No pain mentioned Appearance Lethargic Mental Status/Objective Functional [place] Measure 0=Not Assessed/NA 4=Minimal Assistance 1=Total Assistance 5=Supervision or Setup 2=Maximal Assistance 6=Modified [place] 3=Moderate Assistance 7=Complete [place] ADL-Treatment Provided pt with specialized bariatric BSC with deeper bowl so that she will be able to toilet safely. Also has higher weight limit and is able to be pulled up next to bed so that she can transfer safely. Pt has increased edema today. Isotoner glove put on L hand and L forearm wrapped in tracey wrap. Also wrapped lower legs in tracey wraps and taped into place. It will be difficult to keep wraps in place due to the shape of her legs and skin folds. Nursing assisted with wrapping. Nurse aide notified of change in BSC and tracey wrappings as well. Pt is impulsive and telesitter in place. 4 rails up, all needs met. Education OT Patient Education: Use of adapted equipment Teaching Recipient: Patient Teaching Methods: Discussion Response to Teaching: Verbalize Understanding OT Short Term Goals Short Term Goals 1=Demonstrate adherence to instructed precautions during ADL tasks. 2=Patient will verbalize/demonstrate understanding of assistive devices/ modifications for ADL. 3=Patient will improve strength/tolerance for activity to enable patient to perform ADL's. OT Skilled Nursing Goals Signal Inspector Goals Time Frame: Aug 28, 2016 Maximize independence in basic self care, decrease edema in L UE and LEs to allow her to manage ADLs Additional Goals: 2-Verbalize Understanding, 3-ImproveStrength/[place] 1=Demonstrate adherence to instructed precautions during ADL tasks. 2=Patient will verbalize/demonstrate understanding of assistive devices/ modifications for ADL. 3=Patient will improve strength/tolerance for activity to enable patient to perform ADL's. OT Education/Plan Problem List/Assessment Pt would benefit from skilled OT to increase her independence in basic self care to allow her to safely return to her home to live alone. Discharge Recommendations Plan/Recommendations: Continue POC Treatment Plan/Plan of Care Patient would benefit from OT for education, treatment and training to promote independence in ADL's, mobility, safety and/or upper extremity function for ADL' s. Plan of Care: ADL Retraining, Functional Mobility, UE Funct Exercise/Act Treatment Duration: Aug 28, 2016 Frequency: Daily Estimated Hrs Per Day: .5 hour per day (or more) Agreement: Yes Rehab Potential: Poor Time/GCodes Start Time: 09:55 Stop Time: 10:25 Total Time Billed (hr/min): 30 Billed Treatment Time visit, 30 minutes ADL HAROON MANRIQUEZ OT Aug 22, 2016 10:51
[2016-08-22] MEDS ORDERED: OCTREOTIDE (FOR SQ USE) 100 MCG/ML VIAL (SandoSTATIN) SC SCH (12:15)
[2016-08-22 12:52] VITALS: BP 124/72
[2016-08-22 15:39] VITALS: BP 102/55
--- NOTE | 2016-08-22 16:22 | Discharge Summary ---
Diagnosis/Chief Complaint Date of Admission Aug 17, 2016 at 11:38 am Date of Discharge Aug 22, 2016 at 2:30 pm Admission Diagnosis Admission Diagnosis 08/15-08/16 1. Suspect hepatic encephalopathy: MELD 32 upon transfer 2. Suspect chronic hepatitis C 3. Transaminitis/hyperbilirubinemia 4. UTI 5. Hyponatremia 6. Leukocytosis 7. Macrocytic anemia 8. Thrombocytopenia 9. Excessive alcohol use Discharge Diagnosis See Above Chief Complaint/HPI Chief Complaint/HPI 56 yo female presented to ER after a few days of acute worsening of chronic weakness and fatigue. Over the last few days, she has been essentially so weak that she is unable to get to the bathroom without assistance. Per her daughter, she has been very drowsy and in and out of sleep all the time, more forgetful than usual. She has had very little intake but in spite of that, has had no urinary output in a day or longer. She was noted to have slightly elevated liver enzymes in May outpatient and had a hepatitis panel checked which showed positive antibody to Hepatitis C. An ultrasound was ordered, but she did not have it done and has not yet had Hep C pcr testing. She has continued to drink a significant amount of alcohol. She states she wants to quit, but was worried about having seizures at home where she lives alone. Discharge Summary-Simple/Stand Consultations Discharge Physical Examination Allergies: Coded Allergies: No Known Drug Allergies (Unverified , 08/14/16) Vitals & I&Os Vital Sign - Last 12Hours Date Time Temp Pulse Resp B/P (MAP) Pulse Ox O2 Delivery O2 Flow Rate FiO2 08/22/16 15:39 87 22 102/55 94 Nasal Cannula 2.00 08/22/16 12:52 97.0 Intake and Output 08/22/16 00:00 Intake Total 2170 ml Output Total 150 ml Balance 2020 ml General Appearance: Alert, Cooperative, No Acute Distress HEENT: PERRLA, Other (Severe Scleral icterus bilaterally and jaundice on chest and head) Respiratory: Clear to Auscultation, Normal Air Movement Cardiovascular: Regular Rate, No Murmurs Abdominal: Normal Bowel Sounds, Soft, No Tenderness, Other (+ Ascites) Extremities: Other (2+ pitting edema bilateral) Skin: Other (legs wheeping from anasarca) Neuro: Normal Speech, Sensation Intact, Cranial Nerves 3-12 NL Psych/Mental Status: Mood NL Hospital Course See final discharge diagnosis. Radiology Reviewed CXR 08/14: DRAFT IMPRESSION: Allowing for the shallow degree of inspiration, there is no evidence for an acute cardiopulmonary abnormality. 08/16: Abdominal US: Overall obscured imaging. Hepatomegally noted. No ascites identified. IMPRESSION: 1. Overall, abdominal sonogram is heavily obscured secondary to patient body habitus and poor acoustic windows. 2. Hepatomegaly with hepatic steatosis. Hepatic steatosis also heavily obscured as underlying hepatic parenchymal. 3. Portal vein is obscured, but does appear to show hepatopetal flow. 4. Splenic vein suboptimally visualized. Discussion & Recommendations 56 yo F with concerns for end stage liver disease attributed to EtOH use and suspected chronic Hep C infection. Admitted prior to nd taking over service. Dr Brewster had been communicating with Dr Cruz at regarding her liver disease. During this admission her labs continued to deteriorate. Upon admission patient' s MELD score was 18 and upon transfer to MELD score was 32 with increase Cr and concerns for Hepato-Renal syndrome. Spoke with the transferring doctor and they recommended a dose of Octreotide prior to transfer which was given. Patient continued to have decreasing urine output 2 days prior to transfer. Spoke with patient and her son and daughter in law and they were all in agreement with transfer to given her severity of liver disease and the need to Hepatology specialist. Discharge Condition at discharge Very Poor Prognosis Instructions to patient/family Please see electonic discharge instructions given to patient. Discharge Medications Reviewed and agree with Discharge Medication list on patient's Discharge Instruction sheet Clinical Quality Measures DVT/VTE Risk/Contraindication: Risk Factor Score Per Nursin RFS Level Per Nursing on Admit: 4+=Very High Copy Copies To 1: KAYLEEN RAI MD, HOLLY R MD Aug 22, 2016 4:22 pm
== END 2016-08-22 14:30 | disposition short-term general hospital (02) | DRG 981 ==
LOC: EDUNIT# 16:33 → ER 16:34 → 4TH 20:47 → UNDOADMOB 20:47 → 4TH 21:30 → INTOOBSV 08-17 11:38 → OBSVTOIN 08-17 11:38 → ICU 08-17 13:30 → 4TH 08-17 13:30
PROVIDERS: ADMIT Family Medicine; ATTEND Family Medicine
PROC: 03H Upper Arteries, Insertion (ICD-10-PCS; principal; 2016-08-17)
DX: K72.90 Hepatic failure, unspecified without coma (principal); K76.7 Hepatorenal syndrome; B18.2 Chronic viral hepatitis C; N39.0 Urinary tract infection, site not specified; E87.1 Hypo-osmolality and hyponatremia; Z68.45 Body mass index [BMI] 70 or greater, adult; K70.10 Alcoholic hepatitis without ascites; D72.829 Elevated white blood cell count, unspecified; E88.09 Other disorders of plasma-protein metabolism, not elsewhere classified; D53.9 Nutritional anemia, unspecified; D69.6 Thrombocytopenia, unspecified; I87.2 Venous insufficiency (chronic) (peripheral); F10.20 Alcohol dependence, uncomplicated; E80.6 Other disorders of bilirubin metabolism; F32.9 Major depressive disorder, single episode, unspecified; F41.0 Panic disorder [episodic paroxysmal anxiety]; Z87.891 Personal history of nicotine dependence; E66.01 Morbid (severe) obesity due to excess calories
CPT/HCPCS: 36415; 71010; 80048; 80053; 80320; 81000; 82105; 82140; 82607; 82746; 82805; 82962; 83735; 84100; 84132; 84484; 85007; 85025; 85027; 85610; 85730; 87088; 87186; 87522; 87902; 93975; 94640; 94664; 94760; 96374; G0378